=== PATIENT | male | born 1955 | race Caucasian/White ===

== ENCOUNTER 2016-11-28 23:46 | Emergency (ER) | payer MEDICAID, MEDICARE ==
[2016-11-28 23:59] VITALS: BP 142/81
[2016-11-29] MEDS ORDERED: Diphtheria,Pertussis(Acell),Tetanus Vaccine 0.5 ML SDV IM ONE (00:15)
[2016-11-29] MEDS ORDERED: HYDROmorphone 1 MG/ML Syringe IM ONE (00:16)
--- NOTE | 2016-11-29 01:16 | EDM.PDOC ---
ED HPI GENERAL MEDICAL PROBLEM - General Chief Complaint: Lower Extremity Injury/Pain Stated Complaint: RIGHT FOOT INJURY Time Seen by Provider: 11/29/16 00:07 Source of Information: Reports: Patient History Limitations: Reports: No Limitations - History of Present Illness INITIAL COMMENTS - FREE TEXT/NARRATIVE: The patient [place] and he stepped on something possibly metal and now his right shoe is stuck on him. His tetanus is not up to date. Onset: Sudden Duration: Hour(s): Location: Reports: Lower Extremity, Right (Foot) Quality: Reports: Sharp Severity: Moderate Improves with: Reports: None Worsens with: Reports: None Context: Reports: Other (Walking out at the farm) Associated Symptoms: Reports: No Other Symptoms Right Feet Pain Score (Numeric/FACES): 6 - Related Data Allergies Allergy/AdvReac Type Severity Reaction Status Date / Time No Known Allergies Allergy Verified 11/28/16 23:55 Home Meds: Home Meds . [No Known Home Meds] 11/28/16 [History] Past Medical History - Past Health History Medical/Surgical History: Denies Medical/Surgical History Social & Family History - Tobacco Use Smoking Status *Q: Current Every Day Smoker Years of Tobacco use: 40 Packs/Tins Daily: 0.4 Used Tobacco, but Quit: No Second Hand Smoke Exposure: No - Caffeine Use Caffeine Use: Reports: None - Recreational Drug Use Recreational Drug Use: No Review of Systems - Review of Systems Review Of Systems: See Below Constitutional: Reports: No Symptoms Eyes: Reports: No Symptoms Ears: Reports: No Symptoms Nose: Reports: No Symptoms Mouth/Throat: Reports: No Symptoms Respiratory: Reports: No Symptoms Cardiovascular: Reports: No Symptoms GI/Abdominal: Reports: No Symptoms Genitourinary: Reports: No Symptoms Musculoskeletal: Reports: Other (Pain and FB in his right heel) ED EXAM, GENERAL - Physical Exam Exam: See Below Exam Limited By: No Limitations General Appearance: Alert, No Apparent Distress Ears: Normal External Exam Nose: Normal Inspection Head: Atraumatic, Normocephalic Neck: Normal Inspection Respiratory/Chest: No Respiratory Distress Extremities: Other (His right shoe is stuck on his foot.) Course - Vital Signs Last Recorded V/S: Last Vital Signs Temp 98 F 11/28/16 23:55 Pulse 91 11/28/16 23:55 Resp 18 11/28/16 23:55 BP 142/81 H 11/28/16 23:55 Pulse Ox 97 11/28/16 23:55 - Orders/Labs/Meds Orders: Active Orders 24 hr Category Date Time Status Vaccines to be Administered [RC] PER UNIT ROUTINE Care 11/29/16 00:16 Active Foot 2V Rt [CR] Stat Exams 11/29/16 00:12 Taken Meds: Medications Discontinued Medications Generic Name Dose Route Start Last Admin Trade Name Walt PRN Reason Stop Dose Admin Diphtheria/Tetanus/Acell Pertussis 0.5 ml 11/29/16 00:15 11/29/16 00:30 Adacel IM 11/29/16 00:16 0.5 ml .ONCE ONE Administration Hydromorphone HCl 1 mg 11/29/16 00:16 11/29/16 00:30 Dilaudid IM 11/29/16 00:17 1 mg ONETIME ONE Administration - Re-Assessments/Exams Free Text/Narrative Re-Assessment/Exam: 11/29/16 01:13 I ordered tetanus and dilaudid 1mg IM. I then got an x-ray of his right foot and there are 3 pieces of metal in his shoe. They are possibly nails and one is in his heel. I was able to remove the piece of metal. I will have my nurse clean the wound and I will get him on cipro and something for pain. Departure - Departure Time of Disposition: 01:15 Disposition: Home, Self-Care 01 Condition: Good Clinical Impression: Puncture wound of foot Qualifiers: Encounter type: initial encounter Laterality: right Qualified Code(s): S91.331A - Puncture wound without foreign body, right foot, initial encounter - Discharge Information Referrals: PCP,None [Primary Care Provider] - Benito Garza PA-C [Physician Orthopedic Assistant] - 1 Week Additional Instructions: Soak your foot in warm soapy water 2 times per day and apply antibiotic ointment after. Take the cipro 2 times per day for 1 week. Take the hydrocodones as needed for pain. Please return if you are worse. - My Orders Last 24 Hours: My Active Orders 11/29/16 00:12 Foot 2V Rt [CR] Stat 11/29/16 00:16 Vaccines to be Administered [RC] PER UNIT ROUTINE - Assessment/Plan Last 24 Hours: My Active Orders 11/29/16 00:12 Foot 2V Rt [CR] Stat 11/29/16 00:16 Vaccines to be Administered [RC] PER UNIT ROUTINE
--- NOTE | 2016-11-29 08:33 | CR ---
Right foot: Two views of the right foot were obtained. Metallic object is projected within the soft tissues of the heel. Superficial nail is identified which appears to be outside the soft tissues is noted as well. No additional foreign body is appreciated. No bony abnormality is seen. Impression: 1. Metallic foreign body projected within the heel as well as within the overlying sole of the sandal or shoe. 2. Nail being seen outside the soft tissues within the sole of the shoe or sandal. 3. No acute bony abnormality is identified. Diagnostic code #3
== END 2016-11-29 01:30 | disposition home or self-care (01) ==
LOC: MERGE 23:46 → JD.ED 23:46
DX: S91.341A Puncture wound with foreign body, right foot, initial encounter (principal); F17.210 Nicotine dependence, cigarettes, uncomplicated; Z23 Encounter for immunization; W45.8XXA Other foreign body or object entering through skin, initial encounter
CPT/HCPCS: 28192; 73620; 90471; 90715; 96372; 99284; J1170

== ENCOUNTER 2017-05-28 13:55 | Emergency (ER) | payer MEDICARE ==
[2017-05-28 14:10] VITALS: BP 190/114
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
--- NOTE | 2017-05-29 13:50 | CR ---
Pelvis and right hip: AP view of the pelvis was obtained as well as AP and frog-leg lateral views of the right hip. Comparison: No previous study. Joint spaces within both hips are maintained. Sacroiliac joints are within normal limits. No fracture or other bony abnormality is seen. Vascular calcification is noted. Impression: 1. No abnormality is seen on AP pelvis or on two-view right hip exam. Diagnostic code #1
--- NOTE | 2017-05-29 13:50 | CR ---
Lumbar spine: AP, lateral and coned-down lateral views centered to the lumbosacral junction were obtained. Comparison: No previous study. Moderate disc space narrowing noted at L5-S1. Other disc spaces are maintained. Mild anterior wedge deformity noted of L2 which is age indeterminate. Mild scattered endplate osteophytes are seen. Minimal scoliosis is noted. Pedicles as well as visualized transverse and spinous processes are intact. Vascular calcification is noted within the aorta. Impression: 1. Mild anterior wedging of L2 which is age indeterminate. MRI would be needed to further age this finding if clinically needed. 2. Degenerative change as noted above with mild scoliosis. Diagnostic code #3
--- NOTE | 2017-05-29 13:51 | CR ---
Right elbow: Four views of the right elbow were obtained. Comparison: No previous study. Joint spaces are maintained. No joint effusion is seen. No fracture or other abnormality is identified. Impression: 1. No abnormality is seen on right elbow study. Diagnostic code #1
== END 2017-05-28 15:35 | disposition home or self-care (01) ==
LOC: JD.ED 13:55
DX: S52.121A Displaced fracture of head of right radius, initial encounter for closed fracture (principal); F17.210 Nicotine dependence, cigarettes, uncomplicated; Z88.8 Allergy status to other drugs, medicaments and biological substances; Z88.5 Allergy status to narcotic agent; Z88.0 Allergy status to penicillin; W01.0XXA Fall on same level from slipping, tripping and stumbling without subsequent striking against object, initial encounter
CPT/HCPCS: 72100; 72100-26; 73080-26-RT; 73080-RT; 73502-26-RT; 73502-RT; 99283

== ENCOUNTER 2019-08-31 13:08 | Emergency (ER) | payer MEDICARE ==
[2019-08-31 13:16] VITALS: BP 167/99; PULSE 115
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
--- NOTE | 2019-08-31 15:00 | CT ---
CT cervical spine Technique: Multiple axial sections were obtained from above C1 inferiorly through the T2 vertebral body. Reconstructed sagittal and coronal images were reviewed. Comparison: Previous MRI cervical spine study of 07/20/11. Findings: Mild degenerative change is noted between the dens and anterior arch of C1. Vertebral body heights and disc spaces are maintained. No bony central or bony neural foraminal stenosis is seen. Minimal scattered degenerative apophyseal change is seen. Degenerative apophyseal change most prominent at C7-T1 on the left side which shows evidence of spurring, narrowing and cystic change. Orthopedic hardware is noted within the right clavicle. No acute cervical spine fracture is seen. No abnormal subluxation is seen. Impression: 1. Minimal degenerative change. 2. Old orthopedic hardware within the right clavicle. 3. No acute fracture or abnormal subluxation is appreciated. Diagnostic code #3 This report was dictated in MDT
--- NOTE | 2019-09-01 06:48 | CR ---
Right wrist: 4 views of the right wrist were obtained. Comparison: No prior right wrist study. Mild vascular calcification is seen within the wrist. Joint spaces are fairly well preserved. No acute fracture, dislocation or other bony abnormality is appreciated. Impression: 1. Vascular calcification. 2. Right wrist study is otherwise unremarkable. Diagnostic code #2 This report was dictated in MDT
== END 2019-08-31 15:24 | disposition home or self-care (01) ==
LOC: JD.ED 13:08
DX: S63.501A Unspecified sprain of right wrist, initial encounter (principal); M54.2 Cervicalgia; Z88.6 Allergy status to analgesic agent; Z88.5 Allergy status to narcotic agent; Z88.0 Allergy status to penicillin; F17.210 Nicotine dependence, cigarettes, uncomplicated; W01.0XXA Fall on same level from slipping, tripping and stumbling without subsequent striking against object, initial encounter
CPT/HCPCS: 72125; 72125-26; 73110-26-RT; 73110-RT; 99283; 99284-25

== ENCOUNTER 2020-08-29 15:18 | Inpatient (IN) | payer MEDICARE ==
[2020-08-29] MEDS ORDERED: Sodium Chloride 0.9% 10 ML Syringe FLUSH PRN (15:31)
[2020-08-29] MEDS ORDERED: Sodium Chloride 0.9% 1,000 ML IV SCH (15:45)
[2020-08-29] MEDS ORDERED: HYDROmorphone 0.5 MG/0.5 ML Syringe IVPUSH ONE ×3 (15:46→18:45)
[2020-08-29] MEDS ORDERED: HYDROmorphone 0.5 MG/0.5 ML Syringe ONE (15:49)
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
--- NOTE | 2020-08-29 17:35 | CT ---
CT cervical spine Technique: Multiple axial sections were obtained from C1 inferiorly to the top of T3. Reconstructed coronal and sagittal images were obtained. Comparison: Prior cervical spine CT exam of 08/31/19. Findings: Slight end plate concavity is seen within superior T3 level which is old. Other vertebral body heights and disc spaces are fairly well preserved. Mild degenerative apophyseal change is seen. No bony central or bony neural foraminal stenosis is seen. Slight scoliosis is seen within the spine. Mild degenerative change is noted between the dens and anterior arch of C1. Previous surgery is noted within the right clavicle. Visualized lung apices show emphysematous change. Impression: 1. Findings as noted above. 2. No acute abnormality is appreciated on CT study of the cervical spine. No change from previous cervical spine study is seen. Diagnostic code #2 I agree with preliminary report from [facility], finalized on 08/29/20, 5:47 PM CDT, code 1
--- NOTE | 2020-08-29 17:35 | CR ---
Chest: 2 views of the chest were obtained. Comparison: No prior chest imaging is available. Heart size and mediastinum are within normal limits. Lungs are clear with no acute parenchymal change. Several old right-sided rib fractures are noted. Previous right clavicle fracture is noted with orthopedic hardware. Kyphosis is present within the spine. Slight anterior wedging is noted within the lower thoracic vertebral spine which are felt to be old. Osteopenia is present. Impression: 1. Findings as noted above. 2. Nothing acute is appreciated on 2 view chest x-ray. Diagnostic code #2
--- NOTE | 2020-08-29 17:46 | CR ---
Right foot: 4 views of the right foot were obtained. Comparison: No prior right foot study is available. Findings: Bunion deformity is seen. Mild joint space narrowing is noted within the first MTP joint. Fracture is identified within the calcaneus. Fracture appears to have anatomic alignment as seen on this exam. No additional fracture or other abnormality is appreciated. Impression: 1. Essentially nondisplaced calcaneal fracture. 2. Bunion deformity and mild degenerative change. Diagnostic code #3 Left foot: 4 views left foot were obtained. Bunion deformity is noted. Fracture is seen within the calcaneus. Bohler's angle is slightly depressed within the calcaneus. Mild joint space narrowing is seen within the first MTP joint. No additional fracture or other abnormality is appreciated. Impression: 1. Calcaneal fracture. Bohler's angle slightly depressed within the calcaneus. 2. Bunion deformity and mild degenerative change. Diagnostic code #3
--- NOTE | 2020-08-29 17:48 | CT ---
Head CT Technique: Multiple axial sections were obtained through the brain. Intravenous contrast was not utilized. Reconstructed coronal and sagittal images were obtained. Comparison: Prior head CT study of 04/22/10. Findings: Prior craniotomy is noted on the left side which is stable from prior head CT exam. Visualized paranasal sinuses and mastoid sinuses show nothing acute. No acute calvarial abnormality is appreciated. Ventricles along with basal cisterns and sulci over the convexities are mildly prominent. Mild diminished density is noted within the periventricular white matter which is compatible with small vessel ischemic demyelination change. No evidence of intracranial hemorrhage. No midline shift or mass-effect is seen. Impression: 1. Prior craniotomy. 2. Mild senescent change as described above. 3. Nothing acute is seen on noncontrast head CT exam. Diagnostic code #2 I agree with preliminary report from [facility], finalized on 08/29/20, 5:40 PM CDT, code 1
--- NOTE | 2020-08-29 17:58 | CR ---
Left ankle: 4 views of the left ankle were obtained. Comparison: Left foot study performed on the same day. Fracture is again noted within the left calcaneus. Slight depression of Boehler's angle is seen. Ankle mortise is symmetric. No additional fracture or other bony abnormality is appreciated. Soft tissue swelling is noted. Impression: 1. Calcaneal fracture with depression of Boehler's angle. 2. Soft tissue swelling. Diagnostic code #3 Right ankle: 4 views the right ankle were obtained. Comparison: Right foot study performed on the same day. Prominent soft tissue swelling is identified. Ankle mortise is symmetric. Fracture is noted within the right calcaneus which appears anatomic in alignment. No additional fracture or other bony abnormality is appreciated. Impression: 1. Calcaneal fracture which remains close to anatomic in alignment. Diffuse soft tissue swelling is seen. 2. No other acute abnormality is seen. Diagnostic code #3
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
[2020-08-29] MEDS ORDERED: Ondansetron 4 MG Tab.DIS PO PRN (20:02)
[2020-08-29] MEDS ORDERED: Acetaminophen 325 MG Tab PO PRN (20:02)
[2020-08-29] MEDS ORDERED: Docusate Sodium 100 MG Cap PO PRN (20:02)
[2020-08-29] MEDS ORDERED: Ondansetron 4 MG/2 ML SDV IV PRN (20:02)
[2020-08-29] MEDS: Morphine 2 MG/ML SYRINGE IVPUSH PRN (22:12)
[2020-08-29] MEDS: Heparin Sodium 5,000 Units/ML Vial SUBCUT SCH (22:12)
[2020-08-30] MEDS: Morphine 2 MG/ML SYRINGE IVPUSH PRN ×2 (00:28→04:39)
[2020-08-30] MEDS: Acetaminophen/HYDROcodone 325-5 MG Tab PO PRN ×5 (01:48→23:33)
[2020-08-30] MEDS: Heparin Sodium 5,000 Units/ML Vial SUBCUT SCH ×3 (04:39→21:01)
--- NOTE | 2020-08-30 07:45 | PCM.PN ---
- General Info Date of Service: 08/30/20 Admission Dx/Problem (Free Text): Admission Diagnosis/Problem Admission Diagnosis/Problem Fracture of foot, bilateral calcaneal fractures Subjective Update: No acute events overnight. No new specific nursing concerns. Patient states that pain is controlled with current narcotics regimen. Has been given both Percocet and morphine doses. Both feet have been immobilized. Patient has no specific concerns. No acute medical issues. - Patient Data Vitals - Most Recent: Last Vital Signs Temp 98.1 F 08/30/20 07:27 Pulse 89 08/30/20 07:27 Resp 16 08/30/20 07:27 BP 139/87 08/30/20 07:27 Pulse Ox 92 L 08/30/20 07:27 Weight - Most Recent: 149 lb 12.8 oz I&O - Last 24 Hours: Intake & Output 08/29/20 08/30/20 08/30/20 22:59 06:59 14:59 Intake Total 500 Output Total 1050 Balance -550 Lab Results Last 24 Hours: Laboratory Results - last 24 hr 08/29/20 08/29/20 08/29/20 Range/Units 15:28 15:28 15:28 WBC 7.20 (4.23-9.07) K/mm3 RBC 4.08 L (4.63-6.08) M/mm3 Hgb 12.7 L (13.7-17.5) gm/dl Hct 38.4 L (40.1-51.0) % MCV 94.1 H (79.0-92.2) fl MCH 31.1 (25.7-32.2) pg MCHC 33.1 (32.2-35.5) g/dl RDW Std Deviation 44.6 H (35.1-43.9) fL Plt Count 175 (163-337) K/mm3 MPV 9.7 (9.4-12.3) fl Neut % (Auto) 51.1 (34.0-67.9) % Lymph % (Auto) 30.1 (21.8-53.1) % [place] % (Auto) 14.0 H (5.3-12.2) % Eos % (Auto) 3.8 (0.8-7.0) Baso % (Auto) 0.6 (0.1-1.2) % Neut # (Auto) 3.68 (1.78-5.38) K/mm3 Lymph # (Auto) 2.17 (1.32-3.57) K/mm3 [place] # (Auto) 1.01 H (0.30-0.82) K/mm3 Eos # (Auto) 0.27 (0.04-0.54) K/mm3 Baso # (Auto) 0.04 (0.01-0.08) K/mm3 PT 11.8 (9.7-12.0) SECONDS INR 1.10 Sodium 140 (136-145) mEq/L Potassium 3.8 (3.5-5.1) mEq/L Chloride 105 (98-107) mEq/L Carbon Dioxide 23 (21-32) mEq/L Anion Gap 15.8 H (5-15) BUN 15 (7-18) mg/dL Creatinine 1.0 (0.7-1.3) mg/dL Est Cr Clr Drug Dosing TNP Estimated GFR (MDRD) > 60 (>60) mL/min BUN/Creatinine Ratio 15.0 (14-18) Glucose 85 (70-99) mg/dL Calcium 8.0 L (8.5-10.1) mg/dL Total Bilirubin 0.9 (0.2-1.0) mg/dL AST 28 (15-37) U/L ALT 23 (16-63) U/L Alkaline Phosphatase 58 (46-116) U/L Total Protein 6.5 (6.4-8.2) g/dl Albumin 3.1 L (3.4-5.0) g/dl Globulin 3.4 gm/dL Albumin/Globulin Ratio 0.9 L (1-2) Ethyl Alcohol 0.00 (0.00) gm% SARS-CoV-2 RNA (BRISEIDA) (NEGATIVE) Blood Type Gel Antibody Screen 08/29/20 08/29/20 Range/Units 15:28 19:23 WBC (4.23-9.07) K/mm3 RBC (4.63-6.08) M/mm3 Hgb (13.7-17.5) gm/dl Hct (40.1-51.0) % MCV (79.0-92.2) fl MCH (25.7-32.2) pg MCHC (32.2-35.5) g/dl RDW Std Deviation (35.1-43.9) fL Plt Count (163-337) K/mm3 MPV (9.4-12.3) fl Neut % (Auto) (34.0-67.9) % Lymph % (Auto) (21.8-53.1) % [place] % (Auto) (5.3-12.2) % Eos % (Auto) (0.8-7.0) Baso % (Auto) (0.1-1.2) % Neut # (Auto) (1.78-5.38) K/mm3 Lymph # (Auto) (1.32-3.57) K/mm3 [place] # (Auto) (0.30-0.82) K/mm3 Eos # (Auto) (0.04-0.54) K/mm3 Baso # (Auto) (0.01-0.08) K/mm3 PT (9.7-12.0) SECONDS INR Sodium (136-145) mEq/L Potassium (3.5-5.1) mEq/L Chloride (98-107) mEq/L Carbon Dioxide (21-32) mEq/L Anion Gap (5-15) BUN (7-18) mg/dL Creatinine (0.7-1.3) mg/dL Est Cr Clr Drug Dosing Estimated GFR (MDRD) (>60) mL/min BUN/Creatinine Ratio (14-18) Glucose (70-99) mg/dL Calcium (8.5-10.1) mg/dL Total Bilirubin (0.2-1.0) mg/dL AST (15-37) U/L ALT (16-63) U/L Alkaline Phosphatase (46-116) U/L Total Protein (6.4-8.2) g/dl Albumin (3.4-5.0) g/dl Globulin gm/dL Albumin/Globulin Ratio (1-2) Ethyl Alcohol (0.00) gm% SARS-CoV-2 RNA (BRISE[place]) Negative (NEGATIVE) Blood Type A POSITIVE Gel Antibody Screen Negative Med Orders - Current: Current Medications Acetaminophen (Acetaminophen 325 Mg Tab) 650 mg PO Q4H PRN PRN Reason: Pain (Mild 1-3)/fever Hydrocodone Bitart/Acetaminophen (Acetaminophen/Hydrocodone 325-5 Mg Tab) 1 tab PO Q4H PRN PRN Reason: Pain (moderate 4-6) Last Admin: 08/30/20 07:12 Dose: 1 tab Documented by: Docusate Sodium (Docusate Sodium 100 Mg Cap) 100 mg PO BID PRN PRN Reason: Constipation Heparin Sodium (Porcine) (Heparin Sodium 5,000 Units/Ml Vial) 5,000 units SUBCUT Q8H JOANN Last Admin: 08/30/20 04:39 Dose: 5,000 units Documented by: Morphine Sulfate (Morphine 2 Mg/Ml Syringe) 2 mg IVPUSH Q2H PRN PRN Reason: Pain (severe 7-10) Stop: 08/30/20 20:03 Last Admin: 08/30/20 04:39 Dose: 2 mg Documented by: Ondansetron HCl (Ondansetron 4 Mg Tab.Dis) 4 mg PO Q4H PRN PRN Reason: nausea, able to take PO Ondansetron HCl (Ondansetron 4 Mg/2 Ml Sdv) 4 mg IV Q4H PRN PRN Reason: Nausea/Vomiting Sodium Chloride (Sodium Chloride 0.9% 10 Ml Syringe) 10 ml FLUSH ASDIRECTED PRN PRN Reason: Keep Vein Open Last Admin: 08/29/20 15:58 Dose: 10 ml Documented by: Discontinued Medications Hydromorphone HCl (Hydromorphone 0.5 Mg/0.5 Ml Syringe) 0.5 mg IVPUSH ONETIME ONE Stop: 08/29/20 15:47 Last Admin: 08/29/20 15:58 Dose: 0.5 mg Documented by: Hydromorphone HCl (Hydromorphone 0.5 Mg/0.5 Ml Syringe) Confirm Administered Dose 0.5 mg .ROUTE .STK-MED ONE Stop: 08/29/20 15:50 Last Admin: 08/29/20 15:58 Dose: Not Given Documented by: Hydromorphone HCl (Hydromorphone 0.5 Mg/0.5 Ml Syringe) 0.5 mg IVPUSH ONETIME ONE Stop: 08/29/20 16:47 Last Admin: 08/29/20 16:54 Dose: 0.5 mg Documented by: Hydromorphone HCl (Hydromorphone 0.5 Mg/0.5 Ml Syringe) 0.5 mg IVPUSH ONETIME ONE Stop: 08/29/20 18:46 Last Admin: 08/29/20 18:51 Dose: 0.5 mg Documented by: Sodium Chloride (Normal Saline) 1,000 mls @ 999 mls/hr IV ONETIME JOANN Last Admin: 08/29/20 15:59 Dose: 999 mls/hr Documented by: - Exam General: Alert, Cooperative, No Acute Distress Lungs: Clear to Auscultation, Normal Respiratory Effort Cardiovascular: Regular Rate, Regular Rhythm, No Murmurs GI/Abdominal Exam: Normal Bowel Sounds, Soft, Non-Tender Extremities: Other (Both feet have been immobilized in splints.) Psy/Mental Status: Normal Affect, Normal Mood - Patient Data Lab Results Last 24 hrs: Laboratory Results - last 24 hr 08/29/20 08/29/20 08/29/20 Range/Units 15:28 15:28 15:28 WBC 7.20 (4.23-9.07) K/mm3 RBC 4.08 L (4.63-6.08) M/mm3 Hgb 12.7 L (13.7-17.5) gm/dl Hct 38.4 L (40.1-51.0) % MCV 94.1 H (79.0-92.2) fl MCH 31.1 (25.7-32.2) pg MCHC 33.1 (32.2-35.5) g/dl RDW Std Deviation 44.6 H (35.1-43.9) fL Plt Count 175 (163-337) K/mm3 MPV 9.7 (9.4-12.3) fl Neut % (Auto) 51.1 (34.0-67.9) % Lymph % (Auto) 30.1 (21.8-53.1) % [place] % (Auto) 14.0 H (5.3-12.2) % Eos % (Auto) 3.8 (0.8-7.0) Baso % (Auto) 0.6 (0.1-1.2) % Neut # (Auto) 3.68 (1.78-5.38) K/mm3 Lymph # (Auto) 2.17 (1.32-3.57) K/mm3 [place] # (Auto) 1.01 H (0.30-0.82) K/mm3 Eos # (Auto) 0.27 (0.04-0.54) K/mm3 Baso # (Auto) 0.04 (0.01-0.08) K/mm3 PT 11.8 (9.7-12.0) SECONDS INR 1.10 Sodium 140 (136-145) mEq/L Potassium 3.8 (3.5-5.1) mEq/L Chloride 105 (98-107) mEq/L Carbon Dioxide 23 (21-32) mEq/L Anion Gap 15.8 H (5-15) BUN 15 (7-18) mg/dL Creatinine 1.0 (0.7-1.3) mg/dL Est Cr Clr Drug Dosing TNP Estimated GFR (MDRD) > 60 (>60) mL/min BUN/Creatinine Ratio 15.0 (14-18) Glucose 85 (70-99) mg/dL Calcium 8.0 L (8.5-10.1) mg/dL Total Bilirubin 0.9 (0.2-1.0) mg/dL AST 28 (15-37) U/L ALT 23 (16-63) U/L Alkaline Phosphatase 58 (46-116) U/L Total Protein 6.5 (6.4-8.2) g/dl Albumin 3.1 L (3.4-5.0) g/dl Globulin 3.4 gm/dL Albumin/Globulin Ratio 0.9 L (1-2) Ethyl Alcohol 0.00 (0.00) gm% SARS-CoV-2 RNA ([place]) (NEGATIVE) Blood Type Gel Antibody Screen 08/29/20 08/29/20 Range/Units 15:28 19:23 WBC (4.23-9.07) K/mm3 RBC (4.63-6.08) M/mm3 Hgb (13.7-17.5) gm/dl Hct (40.1-51.0) % MCV (79.0-92.2) fl MCH (25.7-32.2) pg MCHC (32.2-35.5) g/dl RDW Std Deviation (35.1-43.9) fL Plt Count (163-337) K/mm3 MPV (9.4-12.3) fl Neut % (Auto) (34.0-67.9) % Lymph % (Auto) (21.8-53.1) % [place] % (Auto) (5.3-12.2) % Eos % (Auto) (0.8-7.0) Baso % (Auto) (0.1-1.2) % Neut # (Auto) (1.78-5.38) K/mm3 Lymph # (Auto) (1.32-3.57) K/mm3 [place] # (Auto) (0.30-0.82) K/mm3 Eos # (Auto) (0.04-0.54) K/mm3 Baso # (Auto) (0.01-0.08) K/mm3 PT (9.7-12.0) SECONDS INR Sodium (136-145) mEq/L Potassium (3.5-5.1) mEq/L Chloride (98-107) mEq/L Carbon Dioxide (21-32) mEq/L Anion Gap (5-15) BUN (7-18) mg/dL Creatinine (0.7-1.3) mg/dL Est Cr Clr Drug Dosing Estimated GFR (MDRD) (>60) mL/min BUN/Creatinine Ratio (14-18) Glucose (70-99) mg/dL Calcium (8.5-10.1) mg/dL Total Bilirubin (0.2-1.0) mg/dL AST (15-37) U/L ALT (16-63) U/L Alkaline Phosphatase (46-116) U/L Total Protein (6.4-8.2) g/dl Albumin (3.4-5.0) g/dl Globulin gm/dL Albumin/Globulin Ratio (1-2) Ethyl Alcohol (0.00) gm% SARS-CoV-2 RNA (BRISEIDA) Negative (NEGATIVE) Blood Type A POSITIVE Gel Antibody Screen Negative Result Diagrams: 08/29/20 15:28 08/29/20 15:28 Sepsis Event Note - Evaluation Sepsis Screening Result: No Definite Risk - Focused Exam Vital Signs: Vital Signs Temp Pulse Resp BP Pulse Ox 08/30/20 07:27 98.1 F 89 16 139/87 92 L 08/30/20 04:29 98.1 F 93 13 158/89 H 93 L 08/30/20 01:58 98.8 F 102 H 14 170/83 H 92 L 08/29/20 21:50 98.2 F 86 13 151/74 H 97 - Problem List Review Problem List Initiated/Reviewed/Updated: Yes - My Orders Last 24 Hours: My Active Orders 08/29/20 Breakfast Regular Diet [DIET] 08/29/20 19:15 Patient Status [ADT] Routine VTE/DVT Education [RC] Vital Signs [RC] Q4HR Resuscitation Status Routine 08/29/20 20:02 Oxygen Therapy [RC] PRN Up With Assistance [RC] , Acetaminophen [TylenoL] 650 mg PO Q4H PRN Acetaminophen/HYDROcodone [[place] 325-5 MG] 1 tab PO Q4H PRN Docusate Sodium [Colace] 100 mg PO BID PRN Morphine 2 mg IVPUSH Q2H PRN Ondansetron [Zofran ODT] 4 mg PO Q4H PRN Ondansetron [Zofran] 4 mg IV Q4H PRN 08/29/20 20:15 Heparin Sodium 5,000 units SUBCUT Q8H - Plan Plan:: 65-year-old male with a past medical history as listed above who presents to the [facility] emergency department status post trauma to the lower extremities resulting in bilateral calcaneal fractures. 1. Bilateral calcaneal fractures. Appreciate orthopedics consultation. They will continue to follow. Both feet have been immobilized He will need a social work and case management consult regarding disposition. Pain control as necessary with Tylenol, tramadol and narcotics if necessary. PT and OT consultation. 2. Incidental finding of bladder mass. Will inform the patient of this finding. Patient will need urology follow-up for cystoscopy and biopsy in the near future. 3. Hypertension. Patient is not on any maintenance medications. We will add on as needed hydralazine. Will need PCP follow-up. 4. Tobacco abuse. Nicotine replacement as needed. CODE STATUS: Full code. DVT prophylaxis with heparin.
[2020-08-30] MEDS ORDERED: hydrALAZINE 20 MG/ML SDV IVPUSH PRN (09:06)
[2020-08-30] MEDS: Nicotine 21 MG/24 Hr Patch TRDERM SCH (09:25)
[2020-08-30] MEDS: amLODIPine 5 MG Tab PO SCH (09:25)
--- NOTE | 2020-08-30 10:32 | CT ---
CT lumbar spine Technique: Multiple axial sections were obtained above the T11-12 disc through the L5-S1 disc. Reconstructed coronal and sagittal images were obtained. Comparison: Plain film lumbar spine study performed on the same day and prior plain film study of 05/28/17. Findings: Compression deformity is noted superiorly within L2 which appears to be old. Other vertebral body heights are maintained. Diffuse circumferential disc bulges are seen throughout the visualized spine. Most prominent finding is at L4-5 which causes mild central canal stenosis. Neural foramina appear to be patent without definite neural foraminal stenosis. No acute fracture or subluxation is seen. Interstitial fibrosis is seen within both lung bases. 2 cm solid abnormality is noted off the right kidney and difficult to exclude a small area of neoplasm. Additional abnormality is noted within the cortex of the right kidney which could represent additional solid abnormality up to 5.1 cm. Both kidneys also show a mild amount of central calcifications presumably due to medullary sponge kidney. Diffuse atherosclerotic change is seen within the aorta and iliac vessels. Impression: 1. Degenerative change within the lumbar spine. 2. Slight compression deformity within the superior L2 vertebral body which appears to be old. 3. Kidney findings as noted above. Contrast-enhanced study of the abdomen and pelvis is recommended to further evaluate. 4. Other nonacute findings as noted above. Diagnostic code #9 I agree with preliminary report from [facility], finalized on 08/29/20, 7:59 PM CDT, code 1
--- NOTE | 2020-08-30 10:37 | CR ---
Lumbar spine: AP, lateral and coned-down lateral views centered to the lumbosacral junction are obtained. Comparison: Prior lumbar spine study of 05/28/17. Moderate disc space narrowing is noted at L5-S1. Mild anterior wedging of L2 is seen which is stable. Other disc spaces are fairly well maintained. Minimal scoliosis is noted. Pedicles are intact. Visualized transverse and spinous processes are intact. Vascular calcification is noted within the aorta and iliac vessels. Impression: 1. Degenerative change as noted above. 2. Slight anterior wedging of L2 which appears stable. 3. Other findings as noted above. Nothing acute is seen. Diagnostic code #2
--- NOTE | 2020-08-30 10:39 | CR ---
Pelvis: AP view of the pelvis was obtained. Comparison: Prior right hip and pelvis study of . Joint spaces within both hips are maintained. Sacroiliac joint on the right side is slightly narrowed. No acute fracture or other bony abnormality is appreciated. Vascular calcification is noted. Impression: 1. 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 2. Vascular calcification. 3. Nothing acute seen on AP pelvis study. Diagnostic code #2
--- NOTE | 2020-08-30 10:41 | CR ---
Right knee: 3 views of the right knee were obtained. Comparison: No prior right knee study is available. Slight vascular calcification is noted. No joint effusion is seen. Right patellofemoral joint is minimally narrowed. Medial and lateral joint spaces are maintained in height. No acute fracture or subluxation is seen. Impression: 1. Minimal joint space narrowing within the right patellofemoral joint. 2. Vascular calcification. Diagnostic code #2 Left knee: 3 views of the left knee were obtained. Comparison: No prior left knee studies available. Medial and lateral joint spaces are maintained in height. Patellofemoral joint is preserved. No joint effusion is seen. Mild vascular calcification is noted. Impression: 1. Mild vascular calcification. 2. Left knee study is otherwise unremarkable. Diagnostic code #2
--- NOTE | 2020-08-30 11:43 | CT ---
CT right foot Technique: Multiple axial sections through the right foot were obtained. Reconstructed coronal and sagittal images were seen. Comparison: Prior right foot and ankle radiographic studies performed earlier on the same day. Findings: Fracture is noted within the mid to anterior aspect of the calcaneus with subarticular extension. This is mostly vertical in direction. Horizontal fracture line is seen to extend from this area to the posterior calcaneus. Alignment remains very close to anatomic. Extension into the subtalar joint is noted. Diffuse soft tissue swelling is seen. Bunion deformity is noted. No other acute abnormality is appreciated. Impression: 1. Calcaneal fracture which shows comminution. No appreciable displacement is seen. 2. Diffuse soft tissue swelling. 3. Bunion deformity. Diagnostic code #3 I agree with preliminary report from [facility], finalized on 08/29/20, 7:46 PM CDT, code 1
[2020-08-31] MEDS: Heparin Sodium 5,000 Units/ML Vial SUBCUT SCH ×3 (04:31→20:08)
[2020-08-31] MEDS: Acetaminophen/HYDROcodone 325-5 MG Tab PO PRN ×4 (04:31→20:09)
--- NOTE | 2020-08-31 07:52 | PCM.PN ---
<Kaushik Dobbs - Last Filed: 08/31/20 13:46> - General Info Date of Service: 08/31/20 Admission Dx/Problem (Free Text): Admission Diagnosis/Problem Admission Diagnosis/Problem Fracture of foot, bilateral calcaneal fractures Functional Status: Reports: Tolerating Diet, Urinating. Denies: Pain Controlled (Patient reports significant bilateral foot pain but looks comfortable and is sleeping. ), Ambulating, New Symptoms - Review of Systems General: Reports: No Symptoms. Denies: Fever, Weakness, Fatigue, Malaise, Chills HEENT: Reports: No Symptoms. Denies: Headaches, Sore Throat Pulmonary: Reports: No Symptoms. Denies: Shortness of Breath, Cough, Sputum, Wheezing Cardiovascular: Reports: No Symptoms. Denies: Chest Pain, Palpitations Gastrointestinal: Reports: No Symptoms. Denies: Abdominal Pain, Constipation, Diarrhea, Nausea, Vomiting Genitourinary: Reports: No Symptoms. Denies: Pain Musculoskeletal: Reports: Foot Pain (bilateral ) Skin: Reports: No Symptoms. Denies: Cyanosis Neurological: Reports: Difficulty Walking, Gait Disturbance. Denies: Confusion, Dizziness, Headache, Numbness, Pre-Existing Deficit, Syncope, Tingling, Weakness Psychiatric: Reports: No Symptoms - Patient Data Vitals - Most Recent: Last Vital Signs Temp 97.9 F 08/31/20 04:29 Pulse 99 08/31/20 04:29 Resp 13 08/31/20 04:29 BP 155/76 H 08/31/20 04:29 Pulse Ox 92 L 08/31/20 04:29 Weight - Most Recent: 148 lb I&O - Last 24 Hours: Intake & Output 08/30/20 08/31/20 08/31/20 22:59 06:59 14:59 Intake Total 300 625 Output Total 775 600 Balance -475 25 Med Orders - Current: Current Medications Acetaminophen (Acetaminophen 325 Mg Tab) 650 mg PO Q4H PRN PRN Reason: Pain (Mild 1-3)/fever Hydrocodone Bitart/Acetaminophen (Acetaminophen/Hydrocodone 325-5 Mg Tab) 1 tab PO Q4H PRN PRN Reason: Pain (moderate 4-6) Last Admin: 08/31/20 04:31 Dose: 1 tab Documented by: Amlodipine Besylate (Amlodipine 5 Mg Tab) 5 mg PO DAILY JOANN Last Admin: 08/30/20 09:25 Dose: 5 mg Documented by: Docusate Sodium (Docusate Sodium 100 Mg Cap) 100 mg PO BID PRN PRN Reason: Constipation Heparin Sodium (Porcine) (Heparin Sodium 5,000 Units/Ml Vial) 5,000 units SUBCUT Q8H [facility] Last Admin: 08/31/20 04:31 Dose: 5,000 units Documented by: Hydralazine HCl (Hydralazine 20 Mg/Ml Sdv) 10 mg IVPUSH Q6H PRN PRN Reason: Hypertension Miscellaneous Information (Remove Patch *Nicotine*) 1 ea TRDERM DAILY [facility] Morphine Sulfate (Morphine 2 Mg/Ml Syringe) 2 mg IVPUSH Q2H PRN PRN Reason: Pain (severe 7-10) Last Admin: 08/30/20 04:39 Dose: 2 mg Documented by: Nicotine (Nicotine 21 Mg/24 Hr Patch) 21 mg TRDERM DAILY [facility] Last Admin: 08/30/20 09:25 Dose: 21 mg Documented by: Ondansetron HCl (Ondansetron 4 Mg Tab.Dis) 4 mg PO Q4H PRN PRN Reason: nausea, able to take PO Ondansetron HCl (Ondansetron 4 Mg/2 Ml Sdv) 4 mg IV Q4H PRN PRN Reason: Nausea/Vomiting Sodium Chloride (Sodium Chloride 0.9% 10 Ml Syringe) 10 ml FLUSH ASDIRECTED PRN PRN Reason: Keep Vein Open Last Admin: 08/29/20 15:58 Dose: 10 ml Documented by: Discontinued Medications Hydromorphone HCl (Hydromorphone 0.5 Mg/0.5 Ml Syringe) 0.5 mg IVPUSH ONETIME ONE Stop: 08/29/20 15:47 Last Admin: 08/29/20 15:58 Dose: 0.5 mg Documented by: Hydromorphone HCl (Hydromorphone 0.5 Mg/0.5 Ml Syringe) Confirm Administered Dose 0.5 mg .ROUTE .STK-MED ONE Stop: 08/29/20 15:50 Last Admin: 08/29/20 15:58 Dose: Not Given Documented by: Hydromorphone HCl (Hydromorphone 0.5 Mg/0.5 Ml Syringe) 0.5 mg IVPUSH ONETIME ONE Stop: 08/29/20 16:47 Last Admin: 08/29/20 16:54 Dose: 0.5 mg Documented by: Hydromorphone HCl (Hydromorphone 0.5 Mg/0.5 Ml Syringe) 0.5 mg IVPUSH ONETIME ONE Stop: 08/29/20 18:46 Last Admin: 08/29/20 18:51 Dose: 0.5 mg Documented by: Sodium Chloride (Normal Saline) 1,000 mls @ 999 mls/hr IV ONETIME JOANN Last Admin: 08/29/20 15:59 Dose: 999 mls/hr Documented by: - Exam Quality Assessment: DVT Prophylaxis. No: Supplemental Oxygen, Urine Catheter General: Alert, Oriented, Cooperative, No Acute Distress HEENT: Pupils Equal, Pupils Reactive, Mucous Membr. Moist/[place] Neck: Supple, Trachea Midline Lungs: Clear to Auscultation, Normal Respiratory Effort Cardiovascular: Regular Rate, Regular Rhythm GI/Abdominal Exam: Normal Bowel Sounds, Soft, Non-Tender, No Distention (Male) Exam: Deferred Extremities: Normal Capillary Refill, Other (Bilateral foot immobilizers in place. Toes are pink with good sensation bilaterally.) Peripheral Pulses: 3+: Radial (L), Radial (R) Skin: Warm, Dry, Intact Neurological: No New Focal Deficit Psy/Mental Status: Alert - Patient Data Result Diagrams: 08/29/20 15:28 08/29/20 15:28 Sepsis Event Note - Evaluation Sepsis Screening Result: No Definite Risk - Focused Exam Vital Signs: Vital Signs Temp Pulse Resp BP Pulse Ox 08/31/20 04:29 97.9 F 99 13 155/76 H 92 L 08/30/20 20:58 99.0 F 93 15 148/79 H 92 L - Problem List & Annotations (1) Hypertension SNOMED Code(s): 04802928 Code(s): I10 - ESSENTIAL (PRIMARY) HYPERTENSION Status: Acute Priority: High Current Visit: Yes Qualifiers: Hypertension type: unspecified Qualified Code(s): I10 - Essential (primary) hypertension (2) Tobacco abuse SNOMED Code(s): 713688836 Code(s): Z72.0 - TOBACCO USE Status: Chronic Priority: Medium Current Visit: No (3) Bilateral calcaneal fractures SNOMED Code(s): 312496238 Code(s): S92.001A - UNSP FRACTURE OF RIGHT CALCANEUS, INIT FOR CLOS FX; S92.002A - UNSP FRACTURE OF LEFT CALCANEUS, INIT FOR CLOS FX Status: Acute Priority: High Current Visit: Yes Qualifiers: Encounter type: initial encounter Fracture type: closed Qualified Code(s): S92.001A - Unspecified fracture of right calcaneus, initial encounter for closed fracture; S92.002A - Unspecified fracture of left calcaneus, initial encounter for closed fracture (4) Right renal mass SNOMED Code(s): 843163843 Code(s): N28.89 - OTHER SPECIFIED DISORDERS OF KIDNEY AND URETER Status: Acute Priority: Medium Current Visit: Yes (5) Chronic back pain SNOMED Code(s): 234431045 Code(s): M54.9 - DORSALGIA, UNSPECIFIED; G89.29 - OTHER CHRONIC PAIN Status: Chronic Priority: Low Current Visit: No Qualifiers: Back pain location: back pain in unspecified location Back pain laterality: unspecified Qualified Code(s): M54.9 - Dorsalgia, unspecified; G89.29 - Other chronic pain (6) Chronic neck pain SNOMED Code(s): 3066938617026 Code(s): M54.2 - CERVICALGIA; G89.29 - OTHER CHRONIC PAIN Status: Chronic Priority: Low Current Visit: No - Problem List Review Problem List Initiated/Reviewed/Updated: Yes - Assessment Assessment:: 08/29/2020 65-year-old male with a past medical history as listed above who presents to the [facility] emergency department status post trauma to the lower extremities resulting in bilateral calcaneal fractures. 1. Bilateral calcaneal fractures. Appreciate orthopedics consultation. They will continue to follow. ER to splint both feet for immobility. Admit to the hospitalist service and he will need a social work and case management consult regarding disposition. Pain control as necessary with Tylenol, tramadol and possible narcotics if neces nathan. PT and OT consultation. 2. Incidental finding of bladder mass. Will inform the patient of this finding. Patient will need urology follow-up for cystoscopy and biopsy in the near future. 3. Hypertension. Patient is not on any maintenance medications. We will add on as needed hydralazine. Will need PCP follow-up. 4. Tobacco abuse. Nicotine replacement as needed. CODE STATUS: Full code. DVT prophylaxis with heparin. 08/30/2020 65-year-old male with a past medical history as listed above who presents to the [facility] emergency department status post trauma to the lower extremities resulting in bilateral calcaneal fractures. 1. Bilateral calcaneal fractures. Appreciate orthopedics consultation. They will continue to follow. Both feet have been immobilized He will need a social work and case management consult regarding disposition. Pain control as necessary with Tylenol, tramadol and narcotics if necessary. PT and OT consultation. 2. Incidental finding of bladder mass. Will inform the patient of this finding. Patient will need urology follow-up for cystoscopy and biopsy in the near future. 3. Hypertension. Patient is not on any maintenance medications. We will add on as needed hydralazine. Will need PCP follow-up. 4. Tobacco abuse. Nicotine replacement as needed. CODE STATUS: Full code. DVT prophylaxis with heparin. 08/31/2020 65-year-old male admitted on 07/2020 after jumping over a rather large fence resulting in bilateral calcaneus fractures. Patient continues to have leg immobilizer is in place. tool salvage worker did contact patient's mother who states she is unable to take care of patient at home as she was recently discharged from the hospital herself. Patient is essentially bedridden and will require large amounts of help. Team continues to recommend SNF placement. PT and OT di d see him today and recommend SNF placement. Patient states he has some friends who would be available to take care of him. We discussed we will likely require 24/7 care and our concerns with that plan. He is considering SNF placement. Patient's blood pressure has improved. Labs were not obtained today. He has been very stable. Plan is for discharge pending SNF placement. We discussed the lesions found on his right kidney. He states he recalls a scan at [facility] in [place] for 5 years ago when she had a single mass on his right kidney. He never did follow-up with this. We discussed what it could be and how they will likely not know until he take a biopsy. Case management is working on obtaining old scan results. He is medically cleared. Of note: Prior notes indicated bladder mass however patient actually has renal mass' noted on scans. This was an inadvertent error. - Plan Plan:: Bilateral calcaneal fractures * Dr. Chavez - orthopedics contacted in ED - non-surgical * Will need ortho follow-up after discharge * Bilateral foot immobilizers * PT/OT * CM/SW for placement * Pain medications as ordered Hypertension * Norvasc 5mg daily started * PRN hydralazine Tobacco abuse * Nicotine patches ordered * Offer patches at discharge * Cessation counseling Right renal mass * Incidental finding * PCP to follow-up * Urology follow-up for likely biopsy * Patient remembers history of single mass 4-5 years ago at [facility] in [place] - Case management to obtain old records Chronic back pain Chronic neck pain * PT/OT * Pain medications as ordered Code status: Full Code PCP: None DVT prophylaxis: Heparin Social: Patient lives alone in an apartment Disposition: Patient admitted for pain management and likely placement due to bilateral calcaneus fractures. PALOMA trinh 1-2 more days pending placement. <Angel Pittman Jr - Last Filed: 08/31/20 16:15> - Patient Data Vitals - Most Recent: Last Vital Signs Temp 97.3 F 08/31/20 07:45 Pulse 104 H 08/31/20 14:09 Resp 14 08/31/20 14:09 BP 154/74 H 08/31/20 14:09 Pulse Ox 92 L 08/31/20 14:09 I&O - Last 24 Hours: Intake & Output 08/31/20 08/31/20 08/31/20 06:59 14:59 22:59 Intake Total 625 360 300 Output Total 600 350 Balance 25 360 -50 Med Orders - Current: Current Medications Acetaminophen (Acetaminophen 325 Mg Tab) 650 mg PO Q4H PRN PRN Reason: Pain (Mild 1-3)/fever Hydrocodone Bitart/Acetaminophen (Acetaminophen/Hydrocodone 325-5 Mg Tab) 1 tab PO Q4H PRN PRN Reason: Pain (moderate 4-6) Last Admin: 08/31/20 14:15 Dose: 1 tab Documented by: Amlodipine Besylate (Amlodipine 5 Mg Tab) 5 mg PO DAILY [facility] Last Admin: 08/31/20 08:16 Dose: 5 mg Documented by: Docusate Sodium (Docusate Sodium 100 Mg Cap) 100 mg PO BID PRN PRN Reason: Constipation Heparin Sodium (Porcine) (Heparin Sodium 5,000 Units/Ml Vial) 5,000 units SUBCUT Q8H [facility] Last Admin: 08/31/20 11:48 Dose: 5,000 units Documented by: Hydralazine HCl (Hydralazine 20 Mg/Ml Sdv) 10 mg IVPUSH Q6H PRN PRN Reason: Hypertension Miscellaneous Information (Remove Patch *Nicotine*) 1 ea TRDERM DAILY [facility] Last Admin: 08/31/20 08:24 Dose: 1 ea Documented by: Morphine Sulfate (Morphine 2 Mg/Ml Syringe) 2 mg IVPUSH Q2H PRN PRN Reason: Pain (severe 7-10) Last Admin: 08/30/20 04:39 Dose: 2 mg Documented by: Nicotine (Nicotine 21 Mg/24 Hr Patch) 21 mg TRDERM DAILY [facility] Last Admin: 08/31/20 08:19 Dose: 21 mg Documented by: Ondansetron HCl (Ondansetron 4 Mg Tab.Dis) 4 mg PO Q4H PRN PRN Reason: nausea, able to take PO Ondansetron HCl (Ondansetron 4 Mg/2 Ml Sdv) 4 mg IV Q4H PRN PRN Reason: Nausea/Vomiting Sodium Chloride (Sodium Chloride 0.9% 10 Ml Syringe) 10 ml FLUSH ASDIRECTED PRN PRN Reason: Keep Vein Open Last Admin: 08/29/20 15:58 Dose: 10 ml Documented by: Discontinued Medications Hydromorphone HCl (Hydromorphone 0.5 Mg/0.5 Ml Syringe) 0.5 mg IVPUSH ONETIME ONE Stop: 08/29/20 15:47 Last Admin: 08/29/20 15:58 Dose: 0.5 mg Documented by: Hydromorphone HCl (Hydromorphone 0.5 Mg/0.5 Ml Syringe) Confirm Administered Dose 0.5 mg .ROUTE .STK-MED ONE Stop: 08/29/20 15:50 Last Admin: 08/29/20 15:58 Dose: Not Given Documented by: Hydromorphone HCl (Hydromorphone 0.5 Mg/0.5 Ml Syringe) 0.5 mg IVPUSH ONETIME ONE Stop: 08/29/20 16:47 Last Admin: 08/29/20 16:54 Dose: 0.5 mg Documented by: Hydromorphone HCl (Hydromorphone 0.5 Mg/0.5 Ml Syringe) 0.5 mg IVPUSH ONETIME ONE Stop: 08/29/20 18:46 Last Admin: 08/29/20 18:51 Dose: 0.5 mg Documented by: Sodium Chloride (Normal Saline) 1,000 mls @ 999 mls/hr IV ONETIME JOANN Last Admin: 08/29/20 15:59 Dose: 999 mls/hr Documented by: - Patient Data Result Diagrams: 08/29/20 15:28 08/29/20 15:28 Sepsis Event Note - Focused Exam Vital Signs: Vital Signs Temp Pulse Resp BP Pulse Ox 08/31/20 14:09 104 H 14 154/74 H 92 L 08/31/20 08:16 139/77 08/31/20 07:45 97.3 F 106 H 16 139/77 93 L 08/31/20 04:29 97.9 F 99 13 155/76 H 92 L - My Orders Last 24 Hours: My Active Orders 08/31/20 09:00 Remove Patch 1 ea HERBERDERM DAILY 08/31/20 Dinner Regular Diet [DIET] - Plan Plan:: Case discussed in full. Agree with examination, assessment and plan. -Hamilton Arciniega Jr., DO
[2020-08-31] MEDS: amLODIPine 5 MG Tab PO SCH (08:16)
[2020-08-31] MEDS: Nicotine 21 MG/24 Hr Patch TRDERM SCH (08:19)
--- NOTE | 2020-08-31 11:21 | CT ---
CT left foot Technique: Multiple axial sections through the left foot were obtained. Reconstructed coronal and sagittal images were obtained. Comparison: Prior foot and ankle radiographic study performed earlier on the same day. Findings: Comminuted fracture is seen involving the mid calcaneus. There is also extension of the fracture line to the posterior and into the anterior calcaneus. Mild displacement is seen. Diffuse soft tissue swelling is noted. There is some extension into the posterior subtalar joint. Very minimal bony density is seen within the subtalar joint. Bunion deformity is noted. No other acute abnormality is appreciated. Impression: 1. Comminuted calcaneal fracture mostly within the mid calcaneus with extension posterior and anteriorly. Mild displacement is seen. 2. Other findings as noted above which appear nonacute. Diagnostic code #3 I agree with preliminary report from [facility], finalized on 08/29/20, 7:40 PM CDT, code 1 MTDD
[2020-09-01] MEDS: Acetaminophen/HYDROcodone 325-5 MG Tab PO PRN ×5 (01:01→23:46)
[2020-09-01] MEDS: Heparin Sodium 5,000 Units/ML Vial SUBCUT SCH ×3 (04:47→20:26)
--- NOTE | 2020-09-01 07:13 | PCM.PN ---
<Kaushik Dobbs - Last Filed: 09/01/20 12:30> - General Info Date of Service: 09/01/20 Admission Dx/Problem (Free Text): Admission Diagnosis/Problem Admission Diagnosis/Problem Fracture of foot, bilateral calcaneal fractures Functional Status: Reports: Pain Controlled, Tolerating Diet, Urinating. Denies: Ambulating, New Symptoms, Incentive Spirometry - Review of Systems General: Reports: No Symptoms. Denies: Fever, Weakness, Fatigue, Malaise, Chills HEENT: Reports: No Symptoms. Denies: Headaches, Sore Throat Pulmonary: Reports: No Symptoms. Denies: Shortness of Breath, Cough, Sputum, Wheezing Cardiovascular: Reports: No Symptoms. Denies: Chest Pain, Palpitations, Dyspnea on Exertion, Edema Gastrointestinal: Reports: No Symptoms. Denies: Abdominal Pain, Constipation, Diarrhea, Nausea, Vomiting Genitourinary: Reports: No Symptoms. Denies: Pain Musculoskeletal: Reports: Foot Pain (bilateral ) Skin: Reports: No Symptoms. Denies: Cyanosis Neurological: Reports: Difficulty Walking, Gait Disturbance. Denies: Confusion, Headache, Numbness, Tingling, Weakness Psychiatric: Reports: No Symptoms - Patient Data Vitals - Most Recent: Last Vital Signs Temp 98.6 F 09/01/20 04:50 Pulse 93 09/01/20 04:50 Resp 14 09/01/20 04:50 BP 128/75 09/01/20 04:50 Pulse Ox 92 L 09/01/20 04:50 Weight - Most Recent: 149 lb 9.6 oz I&O - Last 24 Hours: Intake & Output 08/31/20 09/01/20 09/01/20 22:59 06:59 14:59 Intake Total 780 400 Output Total 350 400 Balance 430 0 Med Orders - Current: Current Medications Acetaminophen (Acetaminophen 325 Mg Tab) 650 mg PO Q4H PRN PRN Reason: Pain (Mild 1-3)/fever Last Admin: 08/31/20 17:40 Dose: 650 mg Documented by: Hydrocodone Bitart/Acetaminophen (Acetaminophen/Hydrocodone 325-5 Mg Tab) 1 tab PO Q4H PRN PRN Reason: Pain (moderate 4-6) Last Admin: 09/01/20 01:01 Dose: 1 tab Documented by: Amlodipine Besylate (Amlodipine 5 Mg Tab) 5 mg PO DAILY [facility] Last Admin: 08/31/20 08:16 Dose: 5 mg Documented by: Docusate Sodium (Docusate Sodium 100 Mg Cap) 100 mg PO BID PRN PRN Reason: Constipation Heparin Sodium (Porcine) (Heparin Sodium 5,000 Units/Ml Vial) 5,000 units SUBCUT Q8H [facility] Last Admin: 09/01/20 04:47 Dose: 5,000 units Documented by: Hydralazine HCl (Hydralazine 20 Mg/Ml Sdv) 10 mg IVPUSH Q6H PRN PRN Reason: Hypertension Miscellaneous Information (Remove Patch *Nicotine*) 1 ea TRDERM DAILY [facility] Last Admin: 08/31/20 08:24 Dose: 1 ea Documented by: Morphine Sulfate (Morphine 2 Mg/Ml Syringe) 2 mg IVPUSH Q2H PRN PRN Reason: Pain (severe 7-10) Last Admin: 08/30/20 04:39 Dose: 2 mg Documented by: Nicotine (Nicotine 21 Mg/24 Hr Patch) 21 mg TRDERM DAILY [facility] Last Admin: 08/31/20 08:19 Dose: 21 mg Documented by: Ondansetron HCl (Ondansetron 4 Mg Tab.Dis) 4 mg PO Q4H PRN PRN Reason: nausea, able to take PO Ondansetron HCl (Ondansetron 4 Mg/2 Ml Sdv) 4 mg IV Q4H PRN PRN Reason: Nausea/Vomiting Sodium Chloride (Sodium Chloride 0.9% 10 Ml Syringe) 10 ml FLUSH ASDIRECTED PRN PRN Reason: Keep Vein Open Last Admin: 08/29/20 15:58 Dose: 10 ml Documented by: Discontinued Medications Hydromorphone HCl (Hydromorphone 0.5 Mg/0.5 Ml Syringe) 0.5 mg IVPUSH ONETIME ONE Stop: 08/29/20 15:47 Last Admin: 08/29/20 15:58 Dose: 0.5 mg Documented by: Hydromorphone HCl (Hydromorphone 0.5 Mg/0.5 Ml Syringe) Confirm Administered Dose 0.5 mg .ROUTE .STK-MED ONE Stop: 08/29/20 15:50 Last Admin: 08/29/20 15:58 Dose: Not Given Documented by: Hydromorphone HCl (Hydromorphone 0.5 Mg/0.5 Ml Syringe) 0.5 mg IVPUSH ONETIME ONE Stop: 08/29/20 16:47 Last Admin: 08/29/20 16:54 Dose: 0.5 mg Documented by: Hydromorphone HCl (Hydromorphone 0.5 Mg/0.5 Ml Syringe) 0.5 mg IVPUSH ONETIME ONE Stop: 08/29/20 18:46 Last Admin: 08/29/20 18:51 Dose: 0.5 mg Documented by: Sodium Chloride (Normal Saline) 1,000 mls @ 999 mls/hr IV ONETIME [facility]ANN Last Admin: 08/29/20 15:59 Dose: 999 mls/hr Documented by: - Exam Quality Assessment: DVT Prophylaxis. No: Supplemental Oxygen, Urine Catheter General: Alert, Oriented, Cooperative (mostly ), No Acute Distress HEENT: Pupils Equal, Pupils Reactive, Mucous Membr. Moist/[place] Neck: Supple, Trachea Midline Lungs: Clear to Auscultation, Normal Respiratory Effort Cardiovascular: Regular Rate, Regular Rhythm GI/Abdominal Exam: Normal Bowel Sounds, Soft, Non-Tender, No Distention (Male) Exam: Deferred Back Exam: Normal Inspection, Full Range of Motion Extremities: Leg Pain (Bilateral foot), Limited Range of Motion (2/2 pain ), Other (Bilateral ankle immobilizers in place on lower extremities. Good CMS noted.) Peripheral Pulses: 2+: Radial (L), Radial (R) Skin: Warm, Dry, Intact Neurological: No New Focal Deficit Psy/Mental Status: Alert, Normal Affect, Normal Mood - Patient Data Result Diagrams: 08/29/20 15:28 08/29/20 15:28 Sepsis Event Note - Evaluation Sepsis Screening Result: No Definite Risk - Focused Exam Vital Signs: Vital Signs Temp Pulse Resp BP Pulse Ox 09/01/20 04:50 98.6 F 93 14 128/75 92 L 08/31/20 20:14 98.2 F 97 16 138/76 95 - Problem List & Annotations (1) Hypertension SNOMED Code(s): 96969065 Code(s): I10 - ESSENTIAL (PRIMARY) HYPERTENSION Status: Acute Priority: High Current Visit: Yes Qualifiers: Hypertension type: unspecified Qualified Code(s): I10 - Essential (primary) hypertension (2) Tobacco abuse SNOMED Code(s): 571732912 Code(s): Z72.0 - TOBACCO USE Status: Chronic Priority: Medium Current Visit: No (3) Bilateral calcaneal fractures SNOMED Code(s): 339085506 Code(s): S92.001A - UNSP FRACTURE OF RIGHT CALCANEUS, INIT FOR CLOS FX; S92.002A - UNSP FRACTURE OF LEFT CALCANEUS, INIT FOR CLOS FX Status: Acute Priority: High Current Visit: Yes Qualifiers: Encounter type: initial encounter Fracture type: closed Qualified Code(s): S92.001A - Unspecified fracture of right calcaneus, initial encounter for closed fracture; S92.002A - Unspecified fracture of left calcaneus, initial encounter for closed fracture (4) Right renal mass SNOMED Code(s): 017059677 Code(s): N28.89 - OTHER SPECIFIED DISORDERS OF KIDNEY AND URETER Status: Acute Priority: Medium Current Visit: Yes (5) Chronic back pain SNOMED Code(s): 099463927 Code(s): M54.9 - DORSALGIA, UNSPECIFIED; G89.29 - OTHER CHRONIC PAIN Status: Chronic Priority: Low Current Visit: No Qualifiers: Back pain location: back pain in unspecified location Back pain laterality: unspecified Qualified Code(s): M54.9 - Dorsalgia, unspecified; G89.29 - Other chronic pain (6) Chronic neck pain SNOMED Code(s): 0481997136909 Code(s): M54.2 - CERVICALGIA; G89.29 - OTHER CHRONIC PAIN Status: Chronic Priority: Low Current Visit: No - Problem List Review Problem List Initiated/Reviewed/Updated: Yes - My Orders Last 24 Hours: My Active Orders 08/31/20 07:51 Consult to Case Management/Manager Hospitality [CONS] Routine - Assessment Assessment:: 08/29/2020 65-year-old male with a past medical history as listed above who presents to the [facility] emergency department status post trauma to the lower extremities resulting in bilateral calcaneal fractures. 1. Bilateral calcaneal fractures. Appreciate orthopedics consultation. They will continue to follow. ER to splint both feet for immobility. Admit to the hospitalist service and he will need a social work and case management consult regarding disposition. Pain control as necessary with Tylenol, tramadol and possible narcotics if necessary. PT and OT consultation. 2. Incidental finding of bladder mass. Will inform the patient of this finding. Patient will need urology follow-up for cystoscopy and biopsy in the near future. 3. Hypertension. Patient is not on any maintenance medications. We will add on as needed hydralazine. Will need PCP follow-up. 4. Tobacco abuse. Nicotine replacement as needed. CODE STATUS: Full code. DVT prophylaxis with heparin. 08/30/2020 65-year-old male with a past medical history as listed above who presents to the [facility] emergency department status post trauma to the lower extremities resulting in bilateral calcaneal fractures. 1. Bilateral calcaneal fractures. Appreciate orthopedics consultation. They will continue to follow. Both feet have been immobilized He will need a social work and case management consult regarding disposition. Pain control as necessary with Tylenol, tramadol and narcotics if necessary. PT and OT consultation. 2. Incidental finding of bladder mass. Will inform the patient of this finding. Patient will need urology follow-up for cystoscopy and biopsy in the near future. 3. Hypertension. Patient is not on any maintenance medications. We will add on as needed hydralazine. Will need PCP follow-up. 4. Tobacco abuse. Nicotine replacement as needed. CODE STATUS: Full code. DVT prophylaxis with heparin. 08/31/2020 65-year-old male admitted on 08/29/2020 after jumping over a rather large fence resulting in bilateral calcaneus fractures. Patient continues to have leg immobilizer is in place. rescue worker did contact patient's mother who states she is unable to take care of patient at home as she was recently discharged from the hospital herself. Patient is essentially bedridden and will require large amounts of help. Team continues to recommend SNF placement. PT and OT did see him today and recommend SNF placement. Patient states he has some friends who would be available to take care of him. We discussed we will likely require 24/7 care and our concerns with that plan. He is considering SNF placement. Patient's blood pressure has improved. Labs were not obtained today. He has been very stable. Plan is for discharge pending SNF placement. We discussed the lesions found on his right kidney. He states he recalls a scan at [facility] in [place] for 5 years ago when she had a single mass on his right kidney. He never did follow-up with this. We discussed what it could be and how they will likely not know until he take a biopsy. Case management is working on obtaining old scan results. He is medically cleared. Of note: Prior notes indicated bladder mass however patient actually has renal mass' noted on scans. This was an inadvertent error. 09/01/2020 65-year-old male with bilateral calcaneus fractures. Leg immobilizers remain in place and patient is working with PT and OT who are recommending SNF placement, although patient has been refusing therapies. Unfortunately patient is ref using placement as he says that he can return home and have multiple friends to take care of him. We have been unable to contact any of his friends and he has stated that several of them have not been answering his phone. Patient is medically cleared for discharge however as no definitive safe plan can be arranged patient will remain admitted. We will continue to work with patient on contacting caretakers or SNF placement. We are waiting prior scans from patient's renal lesion. He will remain hospitalized with discharge plan pending resolution of social situation. - Plan Plan:: Bilateral calcaneal fractures * Dr. Chavez - orthopedics contacted in ED - non-surgical * Will need ortho follow-up after discharge * Bilateral foot immobilizers * PT/OT * CM/SW for placement * Pain medications as ordered Hypertension * Norvasc 5mg daily started * PRN hydralazine Tobacco abuse * Nicotine patches ordered * Offer patches at discharge * Cessation counseling Right renal mass * Incidental finding * PCP to follow-up * Urology follow-up for likely biopsy * Patient remembers history of single mass 4-5 years ago at [facility] in [place] - Case management to obtain old records Chronic back pain Chronic neck pain * PT/OT * Pain medications as ordered Code status: Full Code PCP: None DVT prophylaxis: Heparin Social: Patient lives alone in an apartment Disposition: Patient admitted for pain management and likely placement due to bilateral calcaneus fractures. LOS pending discharge plan. <Angel Pittman Jr - Last Filed: 09/01/20 16:55> - Patient Data Vitals - Most Recent: Last Vital Signs Temp 97.9 F 09/01/20 15:22 Pulse 101 H 09/01/20 15:22 Resp 18 09/01/20 15:22 BP 136/74 09/01/20 15:22 Pulse Ox 91 L 09/01/20 15:22 I&O - Last 24 Hours: Intake & Output 09/01/20 09/01/20 09/01/20 06:59 14:59 22:59 Intake Total 400 0 180 Output Total 400 Balance 0 0 180 Med Orders - Current: Current Medications Acetaminophen (Acetaminophen 325 Mg Tab) 650 mg PO Q4H PRN PRN Reason: Pain (Mild 1-3)/fever Last Admin: 08/31/20 17:40 Dose: 650 mg Documented by: Hydrocodone Bitart/Acetaminophen (Acetaminophen/Hydrocodone 325-5 Mg Tab) 1 tab PO Q4H PRN PRN Reason: Pain (moderate 4-6) Last Admin: 09/01/20 15:16 Dose: 1 tab Documented by: Amlodipine Besylate (Amlodipine 5 Mg Tab) 5 mg PO DAILY [facility] Last Admin: 09/01/20 08:44 Dose: 5 mg Documented by: Docusate Sodium (Docusate Sodium 100 Mg Cap) 100 mg PO BID PRN PRN Reason: Constipation Heparin Sodium (Porcine) (Heparin Sodium 5,000 Units/Ml Vial) 5,000 units SUBCUT Q8H [facility] Last Admin: 09/01/20 11:45 Dose: 5,000 units Documented by: Hydralazine HCl (Hydralazine 20 Mg/Ml Sdv) 10 mg IVPUSH Q6H PRN PRN Reason: Hypertension Miscellaneous Information (Remove Patch *Nicotine*) 1 ea TRDERM DAILY [facility] Last Admin: 09/01/20 08:52 Dose: 1 ea Documented by: Morphine Sulfate (Morphine 2 Mg/Ml Syringe) 2 mg IVPUSH Q2H PRN PRN Reason: Pain (severe 7-10) Last Admin: 08/30/20 04:39 Dose: 2 mg Documented by: Nicotine (Nicotine 21 Mg/24 Hr Patch) 21 mg TRDERM DAILY [facility] Last Admin: 09/01/20 08:52 Dose: Not Given Documented by: Ondansetron HCl (Ondansetron 4 Mg Tab.Dis) 4 mg PO Q4H PRN PRN Reason: nausea, able to take PO Ondansetron HCl (Ondansetron 4 Mg/2 Ml Sdv) 4 mg IV Q4H PRN PRN Reason: Nausea/Vomiting Sodium Chloride (Sodium Chloride 0.9% 10 Ml Syringe) 10 ml FLUSH ASDIRECTED PRN PRN Reason: Keep Vein Open Last Admin: 08/29/20 15:58 Dose: 10 ml Documented by: Discontinued Medications Hydromorphone HCl (Hydromorphone 0.5 Mg/0.5 Ml Syringe) 0.5 mg IVPUSH ONETIME ONE Stop: 08/29/20 15:47 Last Admin: 08/29/20 15:58 Dose: 0.5 mg Documented by: Hydromorphone HCl (Hydromorphone 0.5 Mg/0.5 Ml Syringe) Confirm Administered Dose 0.5 mg .ROUTE .STK-MED ONE Stop: 08/29/20 15:50 Last Admin: 08/29/20 15:58 Dose: Not Given Documented by: Hydromorphone HCl (Hydromorphone 0.5 Mg/0.5 Ml Syringe) 0.5 mg IVPUSH ONETIME ONE Stop: 08/29/20 16:47 Last Admin: 08/29/20 16:54 Dose: 0.5 mg Documented by: Hydromorphone HCl (Hydromorphone 0.5 Mg/0.5 Ml Syringe) 0.5 mg IVPUSH ONETIME ONE Stop: 08/29/20 18:46 Last Admin: 08/29/20 18:51 Dose: 0.5 mg Documented by: Sodium Chloride (Normal Saline) 1,000 mls @ 999 mls/hr IV ONETIME [facility]ANN Last Admin: 08/29/20 15:59 Dose: 999 mls/hr Documented by: - Patient Data Result Diagrams: 08/29/20 15:28 08/29/20 15:28 Sepsis Event Note - Focused Exam Vital Signs: Vital Signs Temp Pulse Resp BP Pulse Ox 09/01/20 15:22 97.9 F 101 H 18 136/74 91 L 09/01/20 08:44 98.2 F 102 H 18 119/56 L 91 L - My Orders Last 24 Hours: My Active Orders 08/31/20 Dinner Regular Diet [DIET] - Plan Plan:: Case discussed in full. Agree with evaluation, assessment and plan. -Hamilton Arciniega Jr.,
[2020-09-01] MEDS: amLODIPine 5 MG Tab PO SCH (08:44)
[2020-09-01] MEDS: Nicotine 21 MG/24 Hr Patch TRDERM SCH (08:52)
[2020-09-02] MEDS ORDERED: traZODone 50 MG Tab PO PRN (00:12)
[2020-09-02] MEDS: Heparin Sodium 5,000 Units/ML Vial SUBCUT SCH ×2 (05:37→13:23)
[2020-09-02] MEDS: Acetaminophen/HYDROcodone 325-5 MG Tab PO PRN (05:38)
[2020-09-02 08:45] VITALS: BP 108/56
[2020-09-02] MEDS: amLODIPine 5 MG Tab PO SCH (09:29)
[2020-09-02] MEDS: Nicotine 21 MG/24 Hr Patch TRDERM SCH (09:30)
--- NOTE | 2020-09-02 10:16 | PCM.DCSUM1 ---
<Kaushik Dobbs - Last Filed: 09/02/20 11:09> Discharge Summary - Hospital Course HPI Initial Comments: Is a 65-year-old male with a past medical history notable for hypertension and tobacco abuse who presents to the [facility] emergency department via EMS after sustaining trauma to both feet. The patient states that he was trying to get into his apartment complex. A gait that he has to go through was locked and he was unable to open it. He climbed a 7 foot fence in order to get into the gated area. He jumped down and landed on both feet and instantaneously started to experience bilateral heel and ankle pain. He was also experiencing acute back pain. He was unable to walk due to the discomfort. There was an initial report called by EMS that he may have lost consciousness and hit his head. The patient was brought in by EMS under a trauma alert. Head CT was negative for acute intracranial abnormality. Further trauma work-up indicated bilateral calcaneal fractures. Orthopedics has been consulted. No surgical involvement has been consensus thus far. Both feet have yet to be splinted. ER personnel is working on that now. And unsafe for discharge. Patient referred to the general medicine service for a social work and case management consult regarding possible placement. Patient states that he thinks that he can go live with his mother for a little while. Also, incidentally during trauma evaluation, CT imaging of the abdomen has noted two possible renal masses. These will need to be worked up in the near future. 14 point review of systems was reviewed with the patient and only pertinent for the above information. Diagnosis: Stroke: No - Discharge Data Discharge Date: 09/02/20 (Admit date: 08/29/2020) Discharge Disposition: Home, W Home Health Agency 06 Condition: Good - Referral to Home Health Date of Face to Face Encounter: 09/02/20 Reason for Homebound Status: See discharge summary Primary Care Physician: Vahe Valero MD Skilled Need: See discharge summary - Discharge Diagnosis/Problem(s) (1) Hypertension SNOMED Code(s): 35271890 ICD Code: I10 - ESSENTIAL (PRIMARY) HYPERTENSION Status: Acute Priority: High Qualifiers: Hypertension type: unspecified Qualified Code(s): I10 - Essential (primary) hypertension (2) Tobacco abuse SNOMED Code(s): 355070100 ICD Code: Z72.0 - TOBACCO USE Status: Chronic Priority: Medium (3) Bilateral calcaneal fractures SNOMED Code(s): 849963359 ICD Code: S92.001A - UNSP FRACTURE OF RIGHT CALCANEUS, INIT FOR CLOS FX; S92.002A - UNSP FRACTURE OF LEFT CALCANEUS, INIT FOR CLOS FX Status: Acute Priority: High Qualifiers: Encounter type: initial encounter Fracture type: closed Qualified Code(s): S92.001A - Unspecified fracture of right calcaneus, initial encounter for closed fracture; S92.002A - Unspecified fracture of left calcaneus, initial encounter for closed fracture (4) Right renal mass SNOMED Code(s): 939820653 ICD Code: N28.89 - OTHER SPECIFIED DISORDERS OF KIDNEY AND URETER Status: Acute Priority: Medium (5) Chronic back pain SNOMED Code(s): 098278667 ICD Code: M54.9 - DORSALGIA, UNSPECIFIED; G89.29 - OTHER CHRONIC PAIN Status: Chronic Priority: Low Qualifiers: Back pain location: back pain in unspecified location Back pain laterality: unspecified Qualified Code(s): M54.9 - Dorsalgia, unspecified; G89.29 - Other chronic pain (6) Chronic neck pain SNOMED Code(s): 7711928462498 ICD Code: M54.2 - CERVICALGIA; G89.29 - OTHER CHRONIC PAIN Status: Chronic Priority: Low - Patient Summary/Data Consults: Consultations 08/30/20 07:46 PT Evaluation and Treatment [CONS] Routine 08/30/20 07:47 OT Evaluation and Treatment [CONS] Routine 08/31/20 07:51 Consult to Case Management/Ordering Machine Operator [CONS] Routine Labs Pending at D/C: None Recommended Follow-up Testing/Procedures: Follow-up with orthopedic surgeon Dr. Chavez as scheduled. Follow-up with primary care provider within 7 to 10 days of discharge, sooner if needed. -Recommend repeat CBC, CMP, and magnesium at that visit. -Patient was started on 5 mg daily Norvasc while here and this will be continued at discharge. -Patient recommended to check blood pressure twice daily and record this in a journal. Please review blood pressure journal -Patient refused nicotine patches at discharge -Patient discharged on home health services including PT/OT/[facility] [employer] [facility]. Follow-up with outpatient urology regarding renal mass. Hospital Course: This is a 65-year-old male with a past history of tobacco use and chronic back and neck pain who presents to ED on 08/29/2020 after attempting to jump a very high fence, resulting in bilateral calcaneal fractures on landing. Dr. Chavez orthopedic surgeon was contacted discussed the patient by the ED provider and recommended bilateral foot splinting and follow-up in his office. He recommended admittance for pain control and likely placement. Once on the floor patient did have good control with [place] and Tylenol. Our team was recommendi ng placement however the patient was adamant against this. There were some difficulties figure out a discharge disposition as the patient was initially saying that he would use his mother's wheelchair and supplies, although she apparently is using them currently. We were able to arrange for the patient to obtain a wheelchair with leg rests at discharge. While here he was noted to have hypertension with systolic pressures in the 150s to 170s. He was started on 5 mg daily Norvasc instructed to take his blood pressure twice a day, recording it in a journal. He will be discharged on this Norvasc and primary care provider should review the patient's journal after discharge to determine if dosing needs to be adjusted. Incidentally patient was noted to have 2 renal masses noted on a scan. Patient did note that he has a history of a renal single mass, which he never did follow-up on. He states he believed it was much smaller on that scan. We did attempt to obtain old records and were unsuccessful. Recommend patient see urology outpatient as this will likely need to be biopsied. Patient will be discharged home today. Patient will require a manual wheelchair with leg rest at discharge as he has bilateral lower extremity calcaneal fractures and cannot bear weight. Patient does have bilateral lower extremity splints in place to immobilize his legs and will likely require casting in the near future. Because of this patient is unable to use a cane or walker. Patient will require wheelchair with leg rest to manually maneuver around his house. As mentioned prior patient will be discharged on 5 mg Norvasc, as needed Tylenol, and 325/5 mg as needed acetaminophen/hydrocodone every 6 hours for severe pain. He was instructed to follow-up with orthopedic surgeon as scheduled and follow-up with his primary care provider within 7 to 10 days of discharge, sooner if needed. Recommend repeat CBC, CMP, and magnesium at this visit. Recommend review patient's blood pressure journal at that time as well. I personally met with Manas face to face prior to discharge to discuss his homebound status. Patient was evaluated by PT and OT and our team is currently recommending home health services including PT/OT, [facility] [employer]ING MANAGER services, and [facility]. Patient will require physical therapy for continued strengthening of his legs and arms as he is currently wheelchair-bound and unable to bear weight bilaterally due to his foot fractures. He will require occupational therapy for his ADL training. He requires EVENT MARKETING MANAGER services for assistance with ADLs. He will also require [facility] for monitoring his disease process and assistance with medications. The services can be monitored by the patient's PCP provider, Dr. Valero, and adjusted as he sees fit. - Patient Instructions Diet: Usual Diet as Tolerated Activity, Other: Do not walk or put weight on either leg Driving: Do Not Drive Showering/Bathing: May Shower Notify Provider of: Fever, Increased Pain, Nausea and/or Vomiting Other/Special Instructions: Follow-up with primary care provider within 7 to 10 days, sooner if needed. Follow-up with Dr. Chavez, orthopedic surgeon as scheduled. Recommend you follow-up with outpatient urology regarding your right renal masses, as you may require a biopsy of that area. Your primary care provider can assist you with this. Your blood pressure was noted to be high here and you were started on a new blood pressure medication called Norvasc. Take this daily as prescribed. Keep your feet in the immobilizers/splints until directed otherwise by orthopedics. Do not put weight on either foot. This can affect your healing and can lead to difficulty walking in the future. You were prescribed Tylenol for minor pain and acetaminophen/hydrocodone for more moderate to severe pain. Hydrocodone is a narcotic pain medication. Take your pain medications as prescribed. Attempt to wean off your narcotic medications as soon as possible. Do not drive or operate machinery while on narcotic pain medications. Narcotic pain medications may lead to constipation and if needed you may take a [id number] laxative or stool softener. We recommended [facility] facility placement for a rehabilitation stay and you refused. Should you decide this is too much at home you may contact any of our [facility] nursing homes in the area for admission to their facility. Obtain a blood pressure cuff from [employer] or your local pharmacy and take your blood pressure twice a day. Record this in a journal and bring this journal with to all medical appointments. Should symptoms return or worsen contact primary care provider return the emergency room. - Discharge Plan *PRESCRIPTION DRUG MONITORING PROGRAM REVIEWED*: Not Applicable *COPY OF PRESCRIPTION DRUG MONITORING REPORT IN PATIENT DANYEL: Not Applicable Prescriptions/Med Rec: Hydrocodone/Acetaminophen [Hydrocodone-Acetamin 5-325 mg] 1 each PO Q6H PRN #20 tablet PRN Reason: Pain (Moderate 4-6) amLODIPine [Norvasc] 5 mg PO DAILY #20 tablet Acetaminophen [Tylenol] 650 mg PO Q6H PRN #30 tablet PRN Reason: Pain (Mild 1-3)/fever Tobacco Cessation Medication: Prescription Refused Home Medications: Home Meds Acetaminophen [Tylenol] 650 mg PO Q6H PRN #30 tablet 09/02/20 [Rx] Hydrocodone/Acetaminophen [Hydrocodone-Acetamin 5-325 mg] 1 each PO Q6H PRN #20 tablet 09/02/20 [Rx] amLODIPine [Norvasc] 5 mg PO DAILY #20 tablet 09/02/20 [Rx] Oxygen Therapy Mode: Room Air Patient Handouts: Ankle Fracture, [id number], Steps to Quit Smoking Referrals: Tyler Chavez MD [Physician] - 09/03/20 9:30 am Vahe Valero MD [Primary Care Provider] - 09/17/20 10:10 am (this is check in time for a 10:30 appointment. Please discuss with Dr. Valero the possible need for a urology consult.) - Discharge Summary/Plan Comment DC Time >30 min.: Yes (45 mins ) - General Info Date of Service: 09/02/20 Admission Dx/Problem (Free Text: Admission Diagnosis/Problem Admission Diagnosis/Problem Fracture of foot, bilateral calcaneal fractures Functional Status: Reports: Pain Controlled, Tolerating Diet, Urinating. Denies: Ambulating, New Symptoms - Review of Systems General: Reports: No Symptoms, Fatigue. Denies: Fever, Weakness, Malaise, C [place] HEENT: Reports: No Symptoms. Denies: Headaches, Sore Throat Pulmonary: Reports: No Symptoms. Denies: Shortness of Breath, Cough, Sputum, Wheezing Cardiovascular: Reports: No Symptoms. Denies: Chest Pain, Palpitations, Dyspnea on Exertion, Edema Gastrointestinal: Reports: No Symptoms. Denies: Abdominal Pain, Constipation, Diarrhea, Nausea, Vomiting Genitourinary: Reports: No Symptoms. Denies: Pain Musculoskeletal: Reports: Foot Pain (bilateral ) Skin: Reports: No Symptoms. Denies: Cyanosis Neurological: Reports: Difficulty Walking, Gait Disturbance. Denies: Confusion Psychiatric: Reports: No Symptoms - Patient Data Vitals - Most Recent: Last Vital Signs Temp 98.4 F 09/02/20 08:11 Pulse 87 09/02/20 08:13 Resp 16 09/02/20 08:11 BP 108/56 L 09/02/20 09:29 Pulse Ox 89 L 09/02/20 08:13 Weight - Most Recent: 149 lb 14.4 oz I&O - Last 24 hours: Intake & Output 09/01/20 09/02/20 09/02/20 22:59 06:59 14:59 Intake Total 970 480 Output Total 700 500 Balance 270 -20 Med Orders - Current: Current Medications Acetaminophen (Acetaminophen 325 Mg Tab) 650 mg PO Q4H PRN PRN Reason: Pain (Mild 1-3)/fever Last Admin: 08/31/20 17:40 Dose: 650 mg Documented by: Hydrocodone Bitart/Acetaminophen (Acetaminophen/Hydrocodone 325-5 Mg Tab) 1 tab PO Q4H PRN PRN Reason: Pain (moderate 4-6) Last Admin: 09/02/20 05:38 Dose: 1 tab Documented by: Amlodipine Besylate (Amlodipine 5 Mg Tab) 5 mg PO DAILY [facility] Last Admin: 09/02/20 09:29 Dose: Not Given Documented by: Docusate Sodium (Docusate Sodium 100 Mg Cap) 100 mg PO BID PRN PRN Reason: Constipation Heparin Sodium (Porcine) (Heparin Sodium 5,000 Units/Ml Vial) 5,000 units SUBCUT Q8H [facility] Last Admin: 09/02/20 05:37 Dose: 5,000 units Documented by: Hydralazine HCl (Hydralazine 20 Mg/Ml Sdv) 10 mg IVPUSH Q6H PRN PRN Reason: Hypertension Miscellaneous Information (Remove Patch *Nicotine*) 1 ea TRDERM DAILY [facility] Last Admin: 09/02/20 09:30 Dose: Not Given Documented by: Morphine Sulfate (Morphine 2 Mg/Ml Syringe) 2 mg IVPUSH Q2H PRN PRN Reason: Pain (severe 7-10) Last Admin: 08/30/20 04:39 Dose: 2 mg Documented by: Nicotine (Nicotine 21 Mg/24 Hr Patch) 21 mg TRDERM DAILY [facility] Last Admin: 09/02/20 09:30 Dose: Not Given Documented by: Ondansetron HCl (Ondansetron 4 Mg Tab.Dis) 4 mg PO Q4H PRN PRN Reason: nausea, able to take PO Ondansetron HCl (Ondansetron 4 Mg/2 Ml Sdv) 4 mg IV Q4H PRN PRN Reason: Nausea/Vomiting Sodium Chloride (Sodium Chloride 0.9% 10 Ml Syringe) 10 ml FLUSH ASDIRECTED PRN PRN Reason: Keep Vein Open Last Admin: 08/29/20 15:58 Dose: 10 ml Documented by: Discontinued Medications Hydromorphone HCl (Hydromorphone 0.5 Mg/0.5 Ml Syringe) 0.5 mg IVPUSH ONETIME ONE Stop: 08/29/20 15:47 Last Admin: 08/29/20 15:58 Dose: 0.5 mg Documented by: Hydromorphone HCl (Hydromorphone 0.5 Mg/0.5 Ml Syringe) Confirm Administered Dose 0.5 mg .ROUTE .STK-MED ONE Stop: 08/29/20 15:50 Last Admin: 08/29/20 15:58 Dose: Not Given Documented by: Hydromorphone HCl (Hydromorphone 0.5 Mg/0.5 Ml Syringe) 0.5 mg IVPUSH ONETIME ONE Stop: 08/29/20 16:47 Last Admin: 08/29/20 16:54 Dose: 0.5 mg Documented by: Hydromorphone HCl (Hydromorphone 0.5 Mg/0.5 Ml Syringe) 0.5 mg IVPUSH ONETIME ONE Stop: 08/29/20 18:46 Last Admin: 08/29/20 18:51 Dose: 0.5 mg Documented by: Sodium Chloride (Normal Saline) 1,000 mls @ 999 mls/hr IV ONETIME [facility] Last Admin: 08/29/20 15:59 Dose: 999 mls/hr Documented by: Trazodone HCl (Trazodone 50 Mg Tab) 50 mg PO BEDTIME PRN PRN Reason: Insomnia Last Admin: 09/02/20 00:41 Dose: 50 mg Documented by: - Exam Quality Assessment: Reports: DVT Prophylaxis. Denies: Supplemental Oxygen, Urine Catheter General: Reports: Alert, Oriented, Cooperative (for the most part ), No Acute Distress HEENT: Reports: Pupils Equal, Mucous Membr. Moist/[place] Neck: Reports: Supple, Trachea Midline Lungs: Reports: Clear to Auscultation, Normal Respiratory Effort Cardiovascular: Reports: Regular Rate, Regular Rhythm GI/Abdominal Exam: Normal Bowel Sounds, Soft, Non-Tender, No Distention (Male) Exam: Deferred Rectal (Males) Exam: Deferred Back Exam: Reports: Normal Inspection, Full Range of Motion Extremities: Normal Capillary Refill, Limited Range of Motion, Other (Lateral splints in place to immobilize feet and ankles. Good CMS noted bilaterally in toes.) Skin: Reports: Warm, Dry, Intact Neurological: Reports: No New Focal Deficit Psy/Mental Status: Reports: Alert, Labile Mood <Angel Pittman Jr - Last Filed: 09/02/20 16:09> Discharge Summary - Referral to Home Health Primary Care Physician: Vahe Valero MD - Patient Summary/Data Consults: Consultations 08/30/20 07:46 PT Evaluation and Treatment [CONS] Routine 08/30/20 07:47 OT Evaluation and Treatment [CONS] Routine 08/31/20 07:51 Consult to Case Management/Ordering Machine Operator [CONS] Routine - Discharge Summary/Plan Comment Discharge Summary/Plan Comment: Case reviewed and preceptored. Agree with evaluation, assessment and plan. -Hamilton Arciniega Jr., DO - Patient Data Vitals - Most Recent: Last Vital Signs Temp 98.4 F 09/02/20 08:11 Pulse 93 09/02/20 09:27 Resp 16 09/02/20 08:11 BP 108/56 L 09/02/20 09:29 Pulse Ox 91 L 09/02/20 09:27 I&O - Last 24 hours: Intake & Output 09/02/20 09/02/20 09/02/20 06:59 14:59 22:59 Intake Total 480 Output Total 500 Balance -20 Med Orders - Current: Current Medications Acetaminophen (Acetaminophen 325 Mg Tab) 650 mg PO Q4H PRN PRN Reason: Pain (Mild 1-3)/fever Last Admin: 08/31/20 17:40 Dose: 650 mg Documented by: Hydrocodone Bitart/Acetaminophen (Acetaminophen/Hydrocodone 325-5 Mg Tab) 1 tab PO Q4H PRN PRN Reason: Pain (moderate 4-6) Last Admin: 09/02/20 05:38 Dose: 1 tab Documented by: Amlodipine Besylate (Amlodipine 5 Mg Tab) 5 mg PO DAILY [facility] Last Admin: 09/02/20 09:29 Dose: Not Given Documented by: Docusate Sodium (Docusate Sodium 100 Mg Cap) 100 mg PO BID PRN PRN Reason: Constipation Heparin Sodium (Porcine) (Heparin Sodium 5,000 Units/Ml Vial) 5,000 units SUBCUT Q8H [facility] Last Admin: 09/02/20 13:23 Dose: Not Given Documented by: Hydralazine HCl (Hydralazine 20 Mg/Ml Sdv) 10 mg IVPUSH Q6H PRN PRN Reason: Hypertension Miscellaneous Information (Remove Patch *Nicotine*) 1 ea TRDERM DAILY [facility] Last Admin: 09/02/20 09:30 Dose: Not Given Documented by: Morphine Sulfate (Morphine 2 Mg/Ml Syringe) 2 mg IVPUSH Q2H PRN PRN Reason: Pain (severe 7-10) Last Admin: 08/30/20 04:39 Dose: 2 mg Documented by: Nicotine (Nicotine 21 Mg/24 Hr Patch) 21 mg TRDERM DAILY [facility] Last Admin: 09/02/20 09:30 Dose: Not Given Documented by: Ondansetron HCl (Ondansetron 4 Mg Tab.Dis) 4 mg PO Q4H PRN PRN Reason: nausea, able to take PO Ondansetron HCl (Ondansetron 4 Mg/2 Ml Sdv) 4 mg IV Q4H PRN PRN Reason: Nausea/Vomiting Sodium Chloride (Sodium Chloride 0.9% 10 Ml Syringe) 10 ml FLUSH ASDIRECTED PRN PRN Reason: Keep Vein Open Last Admin: 08/29/20 15:58 Dose: 10 ml Documented by: Discontinued Medications Hydromorphone HCl (Hydromorphone 0.5 Mg/0.5 Ml Syringe) 0.5 mg IVPUSH ONETIME ONE Stop: 08/29/20 15:47 Last Admin: 08/29/20 15:58 Dose: 0.5 mg Documented by: Hydromorphone HCl (Hydromorphone 0.5 Mg/0.5 Ml Syringe) Confirm Administered Dose 0.5 mg .ROUTE .STK-MED ONE Stop: 08/29/20 15:50 Last Admin: 08/29/20 15:58 Dose: Not Given Documented by: Hydromorphone HCl (Hydromorphone 0.5 Mg/0.5 Ml Syringe) 0.5 mg IVPUSH ONETIME ONE Stop: 08/29/20 16:47 Last Admin: 08/29/20 16:54 Dose: 0.5 mg Documented by: Hydromorphone HCl (Hydromorphone 0.5 Mg/0.5 Ml Syringe) 0.5 mg IVPUSH ONETIME ONE Stop: 08/29/20 18:46 Last Admin: 08/29/20 18:51 Dose: 0.5 mg Documented by: Sodium Chloride (Normal Saline) 1,000 mls @ 999 mls/hr IV ONETIME [facility] Last Admin: 08/29/20 15:59 Dose: 999 mls/hr Documented by: Trazodone HCl (Trazodone 50 Mg Tab) 50 mg PO BEDTIME PRN PRN Reason: Insomnia Last Admin: 09/02/20 00:41 Dose: 50 mg Documented by:
[2020-09-02 12:17] VITALS: PULSE 93
== END 2020-09-02 15:45 | disposition home health service (06) | DRG 563 ==
LOC: JD.ED 15:18 → JD.MS 19:15
PROVIDERS: ADMIT Hospitalist; ATTEND Hospitalist
DX: S92.002A Unspecified fracture of left calcaneus, initial encounter for closed fracture (principal); S92.062A Displaced intraarticular fracture of left calcaneus, initial encounter for closed fracture; S92.001A Unspecified fracture of right calcaneus, initial encounter for closed fracture; I10 Essential (primary) hypertension; N28.89 Other specified disorders of kidney and ureter; Z20.822 Contact with and (suspected) exposure to COVID-19; M54.9 Dorsalgia, unspecified; N32.89 Other specified disorders of bladder; M54.2 Cervicalgia; G89.29 Other chronic pain; F17.200 Nicotine dependence, unspecified, uncomplicated; Z88.5 Allergy status to narcotic agent; Z88.6 Allergy status to analgesic agent; Z88.0 Allergy status to penicillin; Z88.8 Allergy status to other drugs, medicaments and biological substances; W17.89XA Other fall from one level to another, initial encounter; Y93.39 Activity, other involving climbing, rappelling and jumping off
CPT/HCPCS: 29515; 36415; 70450; 71046; 72100; 72125; 72131; 72170; 73562; 73610; 73630; 73700 ×2; 80053; 80307; 85025; 85610; 86850; 86900; 86901; 93005; 96374; 96376; 99285; J1170 ×3; J7030; 97162-GP; 97165-GO; 97530-GP; 99222; 99232; 99233; 99239; 99284; A9270-GY; J1644; J2270; U0002

== ENCOUNTER 2021-02-14 16:53 | Emergency (ER) | payer MEDICAID, MEDICARE ==
[2021-02-14 17:13] VITALS: BP 175/99; PULSE 121
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
== END 2021-02-14 17:36 | disposition home or self-care (01) ==
LOC: JD.ED 16:53
DX: T78.3XXA Angioneurotic edema, initial encounter (principal); I10 Essential (primary) hypertension; Z88.5 Allergy status to narcotic agent; Z88.0 Allergy status to penicillin; Z88.6 Allergy status to analgesic agent; Z79.899 Other long term (current) drug therapy
CPT/HCPCS: 99283

== ENCOUNTER 2021-02-20 09:49 | Emergency (ER) | payer MEDICARE | END 2021-02-20 10:29 | disposition left against medical advice (07) | LOC: JD.ED 09:49 | DX: Z53.21 Procedure and treatment not carried out due to patient leaving prior to being seen by health care provider (principal) ==

== ENCOUNTER 2021-03-06 12:22 | Emergency (ER) | payer MEDICARE ==
[2021-03-06 12:53] VITALS: BP 184/97; PULSE 104
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
== END 2021-03-06 15:10 | disposition left against medical advice (07) ==
LOC: JD.ED 12:22 → SUPCPDRO 12:22 → JD.ED 15:10
DX: R60.0 Localized edema (principal); I10 Essential (primary) hypertension; Z72.0 Tobacco use; Z88.5 Allergy status to narcotic agent; Z88.8 Allergy status to other drugs, medicaments and biological substances; Z88.0 Allergy status to penicillin; Z79.899 Other long term (current) drug therapy
CPT/HCPCS: 36415; 80053; 83735; 83880; 85025; 99283; 99284

== ENCOUNTER 2021-09-15 20:15 | Emergency (ER) | payer MEDICAID, MEDICARE ==
[2021-09-15 20:36] VITALS: BP 142/85; PULSE 106
[2021-09-15] MEDS ORDERED: HYDROmorphone 1 MG/ML Syringe IM ONE (20:44)
[2021-09-15] MEDS ORDERED: Acetaminophen/oxyCODONE 325-5 MG Tab PO ONE (22:00)
== END 2021-09-15 22:25 | disposition home or self-care (01) ==
LOC: JD.ED 20:15
DX: S97.01XA Crushing injury of right ankle, initial encounter (principal); S90.811A Abrasion, right foot, initial encounter; I10 Essential (primary) hypertension; F17.210 Nicotine dependence, cigarettes, uncomplicated; Z88.5 Allergy status to narcotic agent; Z88.0 Allergy status to penicillin; Z88.8 Allergy status to other drugs, medicaments and biological substances; W23.1XXA Caught, crushed, jammed, or pinched between stationary objects, initial encounter
CPT/HCPCS: 73610; 73630; 96372; 99283; A9270; J1170

== ENCOUNTER 2023-08-22 18:17 | Emergency (ER) | payer MEDICARE ==
[2023-08-22] MEDS: Sodium Chloride 0.9% 10 ML Syringe FLUSH PRN (18:46)
[2023-08-22 19:00] LABS: HEMOGLOBIN 14.4 gm/dl (14.0-18.0); MEAN CORPUSCULAR HEMOGLOBIN 29.2 pg (28.0-32.0); MEAN CORPUSCULAR HGB CONC 33.5 g/dl (32.0-36.0); MEAN CORPUSCULAR VOLUME 87.2 fl (83.0-99.0); MEAN PLATELET VOLUME 9.2 fl (9.4-12.4); PLATELET COUNT,PLT 131 K/mm3 (150-400); RED BLOOD CELL COUNT 4.93 M/mm3 (4.52-5.90); WHITE BLOOD CELL COUNT,WBC 6.15 K/mm3 (3.9-11.3)
[2023-08-22] MEDS: Sodium Chloride 0.9% 1,000 ML IV ONE (19:09)
[2023-08-22] MEDS: cefTRIAXone 2 GM in Sodium Chloride 0.9% 100 ML IV ONE (19:11)
[2023-08-22 19:14] LABS: INR 1.02; PROTHROMBIN TIME 10.9 SECONDS (9.7-12.0)
[2023-08-22] MEDS: Azithromycin 500 MG in Sodium Chloride 0.9% 250 ML IV ONE (19:16)
[2023-08-22 19:20] LABS: A/G RATIO 0.8 (1-2); ALBUMIN 3.3 g/dl (3.4-5.0); ANION GAP 9.9 (5-15); BILIRUBIN TOTAL 0.8 mg/dL (0.2-1.0); BUN/CREATININE RATIO 13.8 (14-18); C-REACTIVE PROTEIN 0.27 mg/dL (<0.30); CALCIUM 8.6 mg/dL (8.5-10.1); CREATININE 1.3 mg/dL (0.7-1.3); EST CRCL DRUG DOSING (CG) 46.26 mL/min; POTASSIUM,K 2.9 mEq/L (3.5-5.1); PROTEIN TOTAL,TP 7.6 g/dl (6.4-8.2)
[2023-08-22 19:33] LABS: LACTIC ACID 1.4 mmol/L (0.4-2.0)
[2023-08-22 19:41] LABS: BAND PERCENT MAN 0 % (0-10); BASOPHILS PERCENT MAN 0 (0.2-1.2); EOSINOPHILS PERCENT MAN 7 % (0.8-7.0); LYMPHOCYTES % ATYPICAL MANUAL 0 %; LYMPHOCYTES PERCENT MAN 16 % (20-40); MONOCYTES PERCENT MAN 8 % (2-10)
[2023-08-22 19:44] LABS: ANISOCYTOSIS 1+; PLATELET COUNT ESTIMATE ADEQUATE
[2023-08-22 20:09] LABS: CORONAVIRUS COVID-19 NAA NEGATIVE (NEGATIVE); INFLUENZA A NAA NEGATIVE (NEGATIVE); RESPIRATORY SYNCYTIAL VIR NAA NEGATIVE (NEGATIVE)
[2023-08-22] MEDS: Albuterol/Ipratropium 3.0-0.5 MG/3 ML Neb Soln NEB ONE (20:09)
[2023-08-23 01:15] VITALS: BP 102/55; PULSE 87
== END 2023-08-23 00:24 | disposition home or self-care (01) ==
LOC: JD.ED 18:17
DX: J15.7 Pneumonia due to Mycoplasma pneumoniae (principal); R09.02 Hypoxemia; I10 Essential (primary) hypertension; Z88.0 Allergy status to penicillin; Z88.8 Allergy status to other drugs, medicaments and biological substances; Z79.899 Other long term (current) drug therapy
CPT/HCPCS: 0241U; 36415; 71045; 80053; 83605; 85007; 85027; 85610; 86140; 87040; 94640; 96361; 96365; 96367; 99285; J0456; J0696; J3490; J7030; J7050; 99283; J7620-GY

== ENCOUNTER 2024-06-11 14:27 | Emergency (ER) | payer MEDICARE ==
[2024-06-11 14:47] VITALS: BP 164/86; PULSE 98
[2024-06-11] MEDS ORDERED: Sodium Chloride 0.9% 10 ML Syringe FLUSH PRN (15:27)
[2024-06-11 16:04] LABS: BASOPHILS ABSOLUTE AUTO 0.1 K/mm3 (0.0-0.2); EOSINOPHILS ABSOLUTE AUTO 0.3 K/mm3 (0.0-0.4); EOSINOPHILS PERCENT AUTO 4.9 % (0.0-6.0); HEMATOCRIT 38.3 % (42.0-52.0); HEMOGLOBIN 12.3 gm/dl (14.0-18.0); IMMATURE GRAN ABSOLUTE AUTO 0.02 K/mm3 (0.00-0.05); IMMATURE GRAN PERCENT AUTO 0.3 % (0.0-0.4); LYMPHOCYTES ABSOLUTE AUTO 1.4 K/mm3 (1.0-4.8); LYMPHOCYTES PERCENT AUTO 25.2 % (24.0-44.0); MEAN CORPUSCULAR HEMOGLOBIN 29.7 pg (28.0-32.0); MEAN CORPUSCULAR HGB CONC 32.1 g/dl (32.0-36.0); MEAN CORPUSCULAR VOLUME 92.5 fl (83.0-99.0); MEAN PLATELET VOLUME 9.4 fl (9.4-12.4); MONOCYTES ABSOLUTE AUTO 0.7 K/mm3 (0.0-0.8); MONOCYTES PERCENT AUTO 11.9 % (0.0-8.0); NEUTROPHILS ABSOLUTE AUTO 3.2 K/mm3 (1.8-7.7); NEUTROPHILS PERCENT AUTO 56.7 % (41.0-71.0); PLATELET COUNT,PLT 142 K/mm3 (150-400); RED BLOOD CELL COUNT 4.14 M/mm3 (4.52-5.90); WHITE BLOOD CELL COUNT,WBC 5.72 K/mm3 (3.9-11.3)
[2024-06-11 16:33] LABS: A/G RATIO 0.9 (1-2); ALBUMIN 3.5 g/dl (3.4-5.0); ANION GAP 9.5 (5-15); BILIRUBIN TOTAL 0.9 mg/dL (0.2-1.0); BUN/CREATININE RATIO 15.5 (14-18); CREATININE 1.1 mg/dL (0.7-1.3); EST CRCL DRUG DOSING (CG) 49.92 mL/min; MAGNESIUM 1.9 mg/dL (1.8-2.4); POTASSIUM,K 3.5 mEq/L (3.5-5.1); PROTEIN TOTAL,TP 7.6 g/dl (6.4-8.2)
== END 2024-06-11 18:00 | disposition home or self-care (01) ==
LOC: JD.ED 14:27
DX: R47.89 Other speech disturbances (principal); I10 Essential (primary) hypertension; F17.210 Nicotine dependence, cigarettes, uncomplicated; Z88.5 Allergy status to narcotic agent; Z88.6 Allergy status to analgesic agent; Z88.0 Allergy status to penicillin; Z79.899 Other long term (current) drug therapy
CPT/HCPCS: 36415; 70450; 70450-26; 80053; 83735; 85025; 93005; 93010; 99284

== ENCOUNTER 2024-06-23 01:40 | Inpatient (IN) | payer MEDICARE ==
[2024-06-23 02:31] LABS: BASOPHILS ABSOLUTE AUTO 0.1 K/mm3 (0.0-0.2); BASOPHILS PERCENT AUTO 0.3 % (0.0-1.0); EOSINOPHILS ABSOLUTE AUTO 0.1 K/mm3 (0.0-0.4); EOSINOPHILS PERCENT AUTO 0.9 % (0.0-6.0); HEMATOCRIT 41.8 % (42.0-52.0); HEMOGLOBIN 13.4 gm/dl (14.0-18.0); IMMATURE GRAN ABSOLUTE AUTO 0.05 K/mm3 (0.00-0.05); IMMATURE GRAN PERCENT AUTO 0.3 % (0.0-0.4); LYMPHOCYTES ABSOLUTE AUTO 0.7 K/mm3 (1.0-4.8); LYMPHOCYTES PERCENT AUTO 4.8 % (24.0-44.0); MEAN CORPUSCULAR HEMOGLOBIN 30.2 pg (28.0-32.0); MEAN CORPUSCULAR HGB CONC 32.1 g/dl (32.0-36.0); MEAN CORPUSCULAR VOLUME 94.4 fl (83.0-99.0); MEAN PLATELET VOLUME 9.9 fl (9.4-12.4); MONOCYTES ABSOLUTE AUTO 0.7 K/mm3 (0.0-0.8); MONOCYTES PERCENT AUTO 4.8 % (0.0-8.0); NEUTROPHILS ABSOLUTE AUTO 13.4 K/mm3 (1.8-7.7); NEUTROPHILS PERCENT AUTO 88.9 % (41.0-71.0); PLATELET COUNT,PLT 226 K/mm3 (150-400); RED BLOOD CELL COUNT 4.43 M/mm3 (4.52-5.90); WHITE BLOOD CELL COUNT,WBC 15.09 K/mm3 (3.9-11.3)
[2024-06-23] MEDS: methylPREDNISolone Sodium Succinate 125 MG/2 ML SDV IVPUSH ONE (02:36)
[2024-06-23] MEDS: Sodium Chloride 0.9% 500 ML IV ONE ×2 (02:36→03:33)
[2024-06-23] MEDS: metroNIDAZOLE/Normal Saline 500 MG in Premix Bag 1 BAG IV ONE (02:40)
[2024-06-23] MEDS: Albuterol/Ipratropium 3.0-0.5 MG/3 ML Neb Soln NEB SCH ×2 (02:46→10:50)
[2024-06-23 02:51] LABS: INR 1.04
[2024-06-23 02:52] LABS: PTT,PARTIAL THROMBOPLSTIN TIME 22.9 SECONDS (21.7-31.4)
[2024-06-23 03:01] LABS: LACTIC ACID 2.4 mmol/L (0.4-2.0)
[2024-06-23 03:04] LABS: A/G RATIO 0.9 (1-2); ALANINE AMINOTRANSFERASE,ALT 35 U/L (16-63); ALBUMIN 3.4 g/dl (3.4-5.0); ALKALINE PHOSPHATASE 70 U/L (46-116); ANION GAP 10.3 (5-15); ASPARTATE AMNIOTRANSFERASE,AST 34 U/L (15-37); BILIRUBIN TOTAL 1.5 mg/dL (0.2-1.0); BLOOD UREA NITROGEN,BUN 22 mg/dL (7-18); BUN/CREATININE RATIO 18.3 (14-18); CALCIUM 9.4 mg/dL (8.5-10.1); CARBON DIOXIDE,CO2 33 mEq/L (21-32); CHLORIDE,CL 100 mEq/L (98-107); CREATININE 1.2 mg/dL (0.7-1.3); ESTIMATED GFR 66 mL/min (>60); GLUCOSE RANDOM 92 mg/dL (70-99); POTASSIUM,K 4.3 mEq/L (3.5-5.1); PROTEIN TOTAL,TP 7.3 g/dl (6.4-8.2); SODIUM,NA 139 mEq/L (136-145); TROPONIN I HIGH SENSITIVITY 8 pg/mL (<=76)
[2024-06-23] MEDS: Levofloxacin/Dextrose 5%-Water 750 MG in Premix Bag 1 BAG IV ONE (03:32)
[2024-06-23 03:40] LABS: CORONAVIRUS COVID-19 NAA NEGATIVE (NEGATIVE); INFLUENZA A NAA NEGATIVE (NEGATIVE); RESPIRATORY SYNCYTIAL VIR NAA NEGATIVE (NEGATIVE)
[2024-06-23] MEDS: Sodium Chloride 0.9% 1,000 ML IV ONE (05:10)
[2024-06-23] MEDS ORDERED: Ondansetron 4 MG/2 ML SDV IV PRN (07:36)
[2024-06-23] MEDS: Sodium Chloride 0.9% 10 ML Syringe FLUSH ONE (09:00)
[2024-06-23] MEDS: Sodium Chloride 0.9% 10 ML Syringe FLUSH PRN (09:21)
[2024-06-23] MEDS: Iopamidol 612 MG/ML 100 ML Bottle IVPUSH ONE (09:21)
[2024-06-23] MEDS: Enoxaparin 40 MG/0.4 ML Syringe SUBCUT SCH (09:47)
[2024-06-23] MEDS: metroNIDAZOLE/Normal Saline 500 MG in Premix Bag 1 BAG IV SCH (10:26)
[2024-06-23] MEDS ORDERED: guaiFENesin 100 MG/5 ML Soln 10 ML UD Cup PO PRN (12:21)
[2024-06-23] MEDS: Sodium Chloride 0.9% 1,000 ML IV SCH (12:29)
[2024-06-23] MEDS: guaiFENesin 600 MG Tab.ER PO SCH (12:31)
[2024-06-23] MEDS: Melatonin 3 MG Tab PO SCH (21:07)
[2024-06-24] MEDS: Acetaminophen 325 MG Tab PO PRN (00:46)
[2024-06-24 05:24] LABS: BASOPHILS PERCENT AUTO 0.1 % (0.0-1.0); HEMATOCRIT 34.4 % (42.0-52.0); IMMATURE GRAN ABSOLUTE AUTO 0.09 K/mm3 (0.00-0.05); IMMATURE GRAN PERCENT AUTO 0.9 % (0.0-0.4); LYMPHOCYTES ABSOLUTE AUTO 0.6 K/mm3 (1.0-4.8); LYMPHOCYTES PERCENT AUTO 5.5 % (24.0-44.0); MEAN CORPUSCULAR HEMOGLOBIN 30.4 pg (28.0-32.0); MEAN CORPUSCULAR HGB CONC 31.7 g/dl (32.0-36.0); MEAN CORPUSCULAR VOLUME 95.8 fl (83.0-99.0); MEAN PLATELET VOLUME 10.1 fl (9.4-12.4); MONOCYTES ABSOLUTE AUTO 0.5 K/mm3 (0.0-0.8); MONOCYTES PERCENT AUTO 4.9 % (0.0-8.0); NEUTROPHILS ABSOLUTE AUTO 9.3 K/mm3 (1.8-7.7); NEUTROPHILS PERCENT AUTO 88.6 % (41.0-71.0); RED BLOOD CELL COUNT 3.59 M/mm3 (4.52-5.90); WHITE BLOOD CELL COUNT,WBC 10.52 K/mm3 (3.9-11.3)
[2024-06-24 06:00] LABS: HEMOGLOBIN 10.9 gm/dl (14.0-18.0); PLATELET COUNT,PLT 141 K/mm3 (150-400)
[2024-06-24 06:15] LABS: A/G RATIO 0.8 (1-2); ALBUMIN 2.6 g/dl (3.4-5.0); BILIRUBIN TOTAL 0.7 mg/dL (0.2-1.0); BUN/CREATININE RATIO 19.1 (14-18); C-REACTIVE PROTEIN 2.89 mg/dL (<0.30); CALCIUM 8.3 mg/dL (8.5-10.1); CREATININE 1.1 mg/dL (0.7-1.3); EST CRCL DRUG DOSING (CG) 48.54 mL/min; PROTEIN TOTAL,TP 5.9 g/dl (6.4-8.2); TSH 0.246 uIU/mL (0.358-3.74)
[2024-06-24 06:40] LABS: T4 FREE 0.67 ng/dL (0.76-1.46)
[2024-06-24] MEDS: LORazepam 2 MG/ML SDV IVPUSH ONE (10:59)
[2024-06-24] MEDS: Gadobenate Dimeglumine 529 MG/ML 15 ML SDV IVPUSH ONE (11:35)
[2024-06-24] MEDS: Sodium Chloride 0.9% 10 ML Syringe FLUSH SCH (11:36)
[2024-06-24] MEDS ORDERED: Sennosides/Docusate Sodium 50-8.6 MG Tab PO PRN (13:35)
[2024-06-24] MEDS: Albuterol/Ipratropium 3.0-0.5 MG/3 ML Neb Soln NEB PRN (16:13)
[2024-06-24] MEDS: LORazepam 2 MG/ML SDV IVPUSH PRN (23:22)
[2024-06-24 23:46] VITALS: BP 109/53; PULSE 109
[2024-06-25] MEDS: Levofloxacin/Dextrose 5%-Water 750 MG in Premix Bag 1 BAG IV SCH (01:35)
== END 2024-06-25 02:45 | disposition left against medical advice (07) | DRG 871 ==
LOC: JD.ED 01:40 → JD.MS 07:36
PROVIDERS: ADMIT Family Medicine; ATTEND Student in an Organized Health Care Education/Training Program
DX: A41.9 Sepsis, unspecified organism (principal); J18.9 Pneumonia, unspecified organism; J96.01 Acute respiratory failure with hypoxia; J69.0 Pneumonitis due to inhalation of food and vomit; Z88.6 Allergy status to analgesic agent; E87.20 Acidosis, unspecified; J44.0 Chronic obstructive pulmonary disease with (acute) lower respiratory infection; R65.20 Severe sepsis without septic shock; H54.7 Unspecified visual loss; I10 Essential (primary) hypertension; F32.A Depression, unspecified; E03.9 Hypothyroidism, unspecified; I95.9 Hypotension, unspecified; Z88.5 Allergy status to narcotic agent; Z88.0 Allergy status to penicillin; Z88.8 Allergy status to other drugs, medicaments and biological substances; Z79.899 Other long term (current) drug therapy; Z98.890 Other specified postprocedural states; Z85.528 Personal history of other malignant neoplasm of kidney
CPT/HCPCS: 0241U; 36415; 70450; 70492; 70553; 71045; 80053; 80061; 82607; 83605; 83880; 84439; 84443; 84484; 85025; 85610; 85730; 86140; 87040; 93005; 94640; 94668; 94761; 96361; 96365; 96367; 96375; 97162; 97530; 99285; 93010; 99223; 99232; 99238; A9270-GY; A9577; J1650; J1836; J1956; J2060; J2919; J7030; Q9967

== ENCOUNTER 2024-06-25 14:21 | Inpatient (IN) | payer MEDICARE ==
[2024-06-25] MEDS: Albuterol/Ipratropium 3.0-0.5 MG/3 ML Neb Soln NEB ONE (14:46)
[2024-06-25 15:03] LABS: BASE EXCESS VENOUS 13.2 (-4.0-2.0); BICARBONATE,VENOUS 39.1 meq/L (22-26); O2 SATURATION VENOUS 85.6; PH,VENOUS 7.46 (7.30-7.40)
[2024-06-25 15:11] LABS: BASOPHILS PERCENT AUTO 0.3 % (0.0-1.0); EOSINOPHILS ABSOLUTE AUTO 0.2 K/mm3 (0.0-0.4); EOSINOPHILS PERCENT AUTO 3.1 % (0.0-6.0); HEMATOCRIT 35.8 % (42.0-52.0); HEMOGLOBIN 11.2 gm/dl (14.0-18.0); IMMATURE GRAN ABSOLUTE AUTO 0.02 K/mm3 (0.00-0.05); IMMATURE GRAN PERCENT AUTO 0.3 % (0.0-0.4); LYMPHOCYTES ABSOLUTE AUTO 1.3 K/mm3 (1.0-4.8); LYMPHOCYTES PERCENT AUTO 18.3 % (24.0-44.0); MEAN CORPUSCULAR HEMOGLOBIN 29.7 pg (28.0-32.0); MEAN CORPUSCULAR HGB CONC 31.3 g/dl (32.0-36.0); MEAN PLATELET VOLUME 9.8 fl (9.4-12.4); MONOCYTES ABSOLUTE AUTO 0.8 K/mm3 (0.0-0.8); MONOCYTES PERCENT AUTO 11.3 % (0.0-8.0); NEUTROPHILS ABSOLUTE AUTO 4.7 K/mm3 (1.8-7.7); NEUTROPHILS PERCENT AUTO 66.7 % (41.0-71.0); PLATELET COUNT,PLT 167 K/mm3 (150-400); RED BLOOD CELL COUNT 3.77 M/mm3 (4.52-5.90)
[2024-06-25] MEDS: methylPREDNISolone Sodium Succinate 125 MG/2 ML SDV IVPUSH ONE (15:11)
[2024-06-25 15:27] LABS: INR 1.07; PROTHROMBIN TIME 11.3 SECONDS (9.7-12.0)
[2024-06-25 15:28] LABS: PTT,PARTIAL THROMBOPLSTIN TIME 25.4 SECONDS (21.7-31.4)
[2024-06-25] MEDS ORDERED: Melatonin 3 MG Tab PO PRN (15:32)
[2024-06-25] MEDS ORDERED: Naloxone 0.4 MG/ML SDV IVPUSH PRN (15:32)
[2024-06-25] MEDS ORDERED: Acetaminophen 325 MG Tab PO PRN (15:32)
[2024-06-25] MEDS ORDERED: Morphine 2 MG/ML SYRINGE IVPUSH PRN (15:32)
[2024-06-25] MEDS ORDERED: Ondansetron 4 MG/2 ML SDV IV PRN (15:32)
[2024-06-25] MEDS ORDERED: Sennosides/Docusate Sodium 50-8.6 MG Tab PO PRN (15:32)
[2024-06-25 15:42] LABS: LACTIC ACID 1.3 mmol/L (0.4-2.0)
[2024-06-25 15:44] LABS: A/G RATIO 0.8 (1-2); ALANINE AMINOTRANSFERASE,ALT 29 U/L (16-63); ALBUMIN 2.8 g/dl (3.4-5.0); ALKALINE PHOSPHATASE 50 U/L (46-116); ANION GAP 4.2 (5-15); ASPARTATE AMNIOTRANSFERASE,AST 28 U/L (15-37); BILIRUBIN TOTAL 0.8 mg/dL (0.2-1.0); BLOOD UREA NITROGEN,BUN 14 mg/dL (7-18); BUN/CREATININE RATIO 12.7 (14-18); C-REACTIVE PROTEIN 1.02 mg/dL (<0.30); CALCIUM 8.6 mg/dL (8.5-10.1); CARBON DIOXIDE,CO2 36 mEq/L (21-32); CHLORIDE,CL 102 mEq/L (98-107); CREATININE 1.1 mg/dL (0.7-1.3); ESTIMATED GFR 74 mL/min (>60); GLUCOSE RANDOM 89 mg/dL (70-99); POTASSIUM,K 4.2 mEq/L (3.5-5.1); PROTEIN TOTAL,TP 6.2 g/dl (6.4-8.2); SODIUM,NA 138 mEq/L (136-145)
[2024-06-25] MEDS: metroNIDAZOLE/Normal Saline 500 MG in Premix Bag 1 BAG IV SCH (16:54)
[2024-06-25] MEDS: cefTRIAXone 1 GM Vial IVPUSH SCH (16:54)
[2024-06-26] MEDS: Enoxaparin 40 MG/0.4 ML Syringe SUBCUT SCH (08:35)
[2024-06-26] MEDS: Albuterol/Ipratropium 3.0-0.5 MG/3 ML Neb Soln NEB PRN (08:50)
[2024-06-26 11:23] LABS: BASOPHILS PERCENT AUTO 0.1 % (0.0-1.0); HEMATOCRIT 36.3 % (42.0-52.0); HEMOGLOBIN 11.6 gm/dl (14.0-18.0); IMMATURE GRAN ABSOLUTE AUTO 0.06 K/mm3 (0.00-0.05); IMMATURE GRAN PERCENT AUTO 0.7 % (0.0-0.4); LYMPHOCYTES ABSOLUTE AUTO 0.5 K/mm3 (1.0-4.8); LYMPHOCYTES PERCENT AUTO 5.6 % (24.0-44.0); MEAN CORPUSCULAR HEMOGLOBIN 30.4 pg (28.0-32.0); MEAN CORPUSCULAR VOLUME 95.3 fl (83.0-99.0); MEAN PLATELET VOLUME 9.9 fl (9.4-12.4); MONOCYTES PERCENT AUTO 11.4 % (0.0-8.0); NEUTROPHILS ABSOLUTE AUTO 7.5 K/mm3 (1.8-7.7); NEUTROPHILS PERCENT AUTO 82.2 % (41.0-71.0); PLATELET COUNT,PLT 172 K/mm3 (150-400); RED BLOOD CELL COUNT 3.81 M/mm3 (4.52-5.90); WHITE BLOOD CELL COUNT,WBC 9.15 K/mm3 (3.9-11.3)
[2024-06-26 11:50] LABS: A/G RATIO 0.8 (1-2); ALBUMIN 2.7 g/dl (3.4-5.0); ANION GAP 5.1 (5-15); BILIRUBIN TOTAL 0.6 mg/dL (0.2-1.0); BUN/CREATININE RATIO 14.2 (14-18); CALCIUM 8.5 mg/dL (8.5-10.1); CREATININE 1.2 mg/dL (0.7-1.3); EST CRCL DRUG DOSING (CG) 44.8 mL/min; MAGNESIUM 1.7 mg/dL (1.8-2.4); PHOSPHORUS 2.5 mg/dL (2.6-4.7); POTASSIUM,K 4.1 mEq/L (3.5-5.1); PROTEIN TOTAL,TP 6.3 g/dl (6.4-8.2)
[2024-06-26] MEDS ORDERED: Metoprolol Tartrate 5 MG/5 ML SDV IVPUSH PRN (14:01)
[2024-06-26] MEDS: Magnesium Sulf/Wat 4 GM/50 mL 4 GM in Premix Bag 1 BAG IV ONE (14:56)
[2024-06-26] MEDS: Sodium Phosphate 30 MMOLE in Sodium Chloride 0.9% 250 ML IV ONE (14:56)
[2024-06-26] MEDS: Ondansetron 4 MG Tab.DIS PO PRN (17:56)
[2024-06-27 08:42] LABS: ANION GAP 5.2 (5-15); C-REACTIVE PROTEIN 0.43 mg/dL (<0.30); CALCIUM 8.6 mg/dL (8.5-10.1); CREATININE 1.2 mg/dL (0.7-1.3); EST CRCL DRUG DOSING (CG) 46.18 mL/min; MAGNESIUM 2.2 mg/dL (1.8-2.4); PHOSPHORUS 3.8 mg/dL (2.6-4.7); POTASSIUM,K 4.2 mEq/L (3.5-5.1)
[2024-06-27] MEDS: OLANZapine 5 MG Tab PO SCH (20:52)
[2024-06-28 04:37] LABS: ANION GAP 0.5 (5-15); C-REACTIVE PROTEIN 0.3 mg/dL (<0.30); CALCIUM 8.5 mg/dL (8.5-10.1); EST CRCL DRUG DOSING (CG) 54.13 mL/min; MAGNESIUM 1.9 mg/dL (1.8-2.4); PHOSPHORUS 3.6 mg/dL (2.6-4.7); POTASSIUM,K 4.5 mEq/L (3.5-5.1)
[2024-06-28 14:59] VITALS: BP 148/87; PULSE 112
[2024-06-29 13:46] LABS: ACTH 31.2 pg/mL (7.2-63.3)
== END 2024-06-28 14:56 | disposition home or self-care (01) | DRG 177 ==
LOC: JD.ED 14:21 → JD.MS 15:22
PROVIDERS: ADMIT Student in an Organized Health Care Education/Training Program; ATTEND Student in an Organized Health Care Education/Training Program
DX: J69.0 Pneumonitis due to inhalation of food and vomit (principal); J96.01 Acute respiratory failure with hypoxia; J44.0 Chronic obstructive pulmonary disease with (acute) lower respiratory infection; I10 Essential (primary) hypertension; H54.7 Unspecified visual loss; M54.2 Cervicalgia; G89.29 Other chronic pain; F32.A Depression, unspecified; R47.1 Dysarthria and anarthria; E03.9 Hypothyroidism, unspecified; E83.39 Other disorders of phosphorus metabolism; E83.42 Hypomagnesemia; F41.9 Anxiety disorder, unspecified; R09.02 Hypoxemia; Z88.5 Allergy status to narcotic agent; Z88.8 Allergy status to other drugs, medicaments and biological substances; Z88.0 Allergy status to penicillin; Z90.5 Acquired absence of kidney; Z98.890 Other specified postprocedural states; Z88.6 Allergy status to analgesic agent; Z79.899 Other long term (current) drug therapy
CPT/HCPCS: 36415; 80053; 82803; 83605; 84484; 85025; 85610; 85730; 86140; 93005; 94640; 96374; 99285; A9270; J2919; 71045; 71045-26; 80048; 82024; 82533; 83001; 83002; 83735; 84100; 84146; 84270; 84402; 84403; 92610-GN; 93010; 94761; 97162-GP; 97530-GP; 99223; 99232; 99233; 99239; J0696; J1650; J1836; J3475; J3490

== ENCOUNTER 2024-07-05 08:08 | Emergency (ER) | payer MEDICARE ==
[2024-07-05 08:43] LABS: BASE EXCESS ARTERIAL 6.3 (-2-2.0); BICARBONATE,ARTERIAL 34.6 meq/L (22.0-26.0)
[2024-07-05] MEDS: Albuterol/Ipratropium 3.0-0.5 MG/3 ML Neb Soln NEB SCH (08:48)
[2024-07-05 09:17] LABS: CORONAVIRUS COVID-19 NAA NEGATIVE (NEGATIVE); INFLUENZA A NAA NEGATIVE (NEGATIVE); RESPIRATORY SYNCYTIAL VIR NAA NEGATIVE (NEGATIVE)
[2024-07-05 09:21] LABS: BASOPHILS PERCENT AUTO 0.4 % (0.0-1.0); EOSINOPHILS ABSOLUTE AUTO 0.2 K/mm3 (0.0-0.4); EOSINOPHILS PERCENT AUTO 1.7 % (0.0-6.0); HEMATOCRIT 32.6 % (42.0-52.0); HEMOGLOBIN 9.8 gm/dl (14.0-18.0); IMMATURE GRAN ABSOLUTE AUTO 0.04 K/mm3 (0.00-0.05); IMMATURE GRAN PERCENT AUTO 0.4 % (0.0-0.4); LYMPHOCYTES ABSOLUTE AUTO 0.7 K/mm3 (1.0-4.8); LYMPHOCYTES PERCENT AUTO 6.3 % (24.0-44.0); MEAN CORPUSCULAR HEMOGLOBIN 30.3 pg (28.0-32.0); MEAN CORPUSCULAR HGB CONC 30.1 g/dl (32.0-36.0); MEAN CORPUSCULAR VOLUME 100.9 fl (83.0-99.0); MONOCYTES ABSOLUTE AUTO 0.9 K/mm3 (0.0-0.8); MONOCYTES PERCENT AUTO 8.1 % (0.0-8.0); NEUTROPHILS ABSOLUTE AUTO 8.8 K/mm3 (1.8-7.7); NEUTROPHILS PERCENT AUTO 83.1 % (41.0-71.0); PLATELET COUNT,PLT 129 K/mm3 (150-400); RED BLOOD CELL COUNT 3.23 M/mm3 (4.52-5.90); WHITE BLOOD CELL COUNT,WBC 10.59 K/mm3 (3.9-11.3)
[2024-07-05 09:36] LABS: LACTIC ACID 0.6 mmol/L (0.4-2.0)
[2024-07-05 09:43] LABS: A/G RATIO 0.7 (1-2); ALBUMIN 2.7 g/dl (3.4-5.0); ANION GAP 7.6 (5-15); BILIRUBIN TOTAL 0.5 mg/dL (0.2-1.0); BUN/CREATININE RATIO 16.4 (14-18); CALCIUM 8.5 mg/dL (8.5-10.1); CREATININE 1.1 mg/dL (0.7-1.3); EST CRCL DRUG DOSING (CG) 47.24 mL/min; MAGNESIUM 1.8 mg/dL (1.8-2.4); POTASSIUM,K 4.6 mEq/L (3.5-5.1); PROTEIN TOTAL,TP 6.4 g/dl (6.4-8.2)
[2024-07-05] MEDS: Sodium Chloride 0.9% 500 ML IV ONE (09:54)
[2024-07-05] MEDS: Clindamycin Phosphate in D5W 600 MG in Premix Bag 1 BAG IV ONE (11:27)
[2024-07-05] MEDS: Sodium Chloride 0.9% 10 ML Syringe FLUSH PRN (12:10)
[2024-07-05] MEDS: Levofloxacin/Dextrose 5%-Water 750 MG in Premix Bag 1 BAG IV ONE (12:14)
[2024-07-05 13:38] VITALS: BP 110/55; PULSE 117
== END 2024-07-05 13:19 ==
LOC: JD.ED 08:08
DX: J18.9 Pneumonia, unspecified organism (principal); I10 Essential (primary) hypertension; Z88.5 Allergy status to narcotic agent; Z88.0 Allergy status to penicillin; Z88.6 Allergy status to analgesic agent; Z88.8 Allergy status to other drugs, medicaments and biological substances; Z79.899 Other long term (current) drug therapy
CPT/HCPCS: 0241U; 36415; 36600; 71045; 80053; 82803; 83605; 83735; 83880; 84484; 85025; 87040; 93005; 94640; 96361; 96365; 96367; 99285; A9270; J0736; J1956; J7030; 93010